=== PATIENT | female | born 1975 | race Caucasian/White ===

== ENCOUNTER 2017-05-20 10:32 | Outpatient (RCR) | payer MEDICAID, OTHER ==
[2017-05-20 11:15] LABS: BASOPHILS % (AUTO) 0 % (0-10); EOSINOPHILS # (AUTO) 0.2 10^3/uL (0.0-0.3); EOSINOPHILS % (AUTO) 3 % (0-10); LYMPHOCYTES # (AUTO) 1.3 X 10^3 (1.0-4.0); LYMPHOCYTES % (AUTO) 17 % (12-44); MEAN CORPUSCULAR HEMOGLOBIN 20 PG (25-34); MEAN CORPUSCULAR HGB CONC 29 G/DL (32-36); MEAN CORPUSCULAR VOLUME 68 FL (80-99); MEAN PLATELET VOLUME 9.5 FL (7.4-10.4); MONOCYTES # (AUTO) 0.6 X 10^3 (0.0-1.0); MONOCYTES % (AUTO) 7 % (0-12); NEUTROPHILS # (AUTO) 5.9 X 10^3 (1.8-7.8); NEUTROPHILS % (AUTO) 73 % (42-75); PLATELET COUNT 362 10^3/uL (130-400); RED BLOOD COUNT 3.51 10^6/uL (4.35-5.85); RED CELL DISTRIBUTION WIDTH 17.2 % (10.0-14.5); WHITE BLOOD COUNT 8.1 10^3/uL (4.3-11.0)
[2017-05-20 11:31] LABS: ALANINE AMINOTRANSFERASE 10 U/L (0-55); ALBUMIN 3.9 GM/DL (3.2-4.5); ANION GAP 10 MMOL/L (5-14); ASPARTATE AMINO TRANSFERASE 8 U/L (5-34); BILIRUBIN,TOTAL 0.3 MG/DL (0.1-1.0); BLOOD UREA NITROGEN 16 MG/DL (7-18); BUN/CREATININE RATIO 20; CALCIUM 9.2 MG/DL (8.5-10.1); CARBON DIOXIDE 23 MMOL/L (21-32); CHLORIDE 103 MMOL/L (98-107); CREATININE SERUM 0.81 MG/DL (0.60-1.30); GFR ESTIMATED > 60; GLUCOSE 205 MG/DL (70-105); POTASSIUM 4.1 MMOL/L (3.6-5.0); SODIUM 136 MMOL/L (135-145); TOTAL PROTEIN 7.1 GM/DL (6.4-8.2)
== END 2017-05-23 | disposition home or self-care (01) ==
LOC: ONC 10:32
PROVIDERS: ATTEND Internal Medicine Hematology & Oncology
DX: R59.0 Localized enlarged lymph nodes; E66.01 Morbid (severe) obesity due to excess calories; K86.9 Disease of pancreas, unspecified; E11.9 Type 2 diabetes mellitus without complications; D50.0 Iron deficiency anemia secondary to blood loss (chronic); Z68.42 Body mass index [BMI] 45.0-49.9, adult; C53.9 Malignant neoplasm of cervix uteri, unspecified; F17.210 Nicotine dependence, cigarettes, uncomplicated; F32.9 Major depressive disorder, single episode, unspecified; Z79.899 Other long term (current) drug therapy
CPT/HCPCS: 36415; 80053; 82728; 83540; 85025; 86304; 99214

== ENCOUNTER 2017-05-28 05:44 | Outpatient (CLI) | payer MEDICAID ==
[~2017-05-28] VITALS: Ht 170.2 cm; Wt 128.4 kg
[2017-05-28] MEDS ORDERED: HYDR-3812 PO (14:55)
[2017-05-28] MEDS ORDERED: MEDR10TA PO (14:55)
== END 2017-05-28 15:04 ==
LOC: PREOP 05:44
PROVIDERS: ATTEND Surgery
DX: Z01.818 Encounter for other preprocedural examination (principal); C53.9 Malignant neoplasm of cervix uteri, unspecified

== ENCOUNTER 2017-05-29 06:56 | Day surgery (SDC) | payer MEDICAID ==
[~2017-05-29] VITALS: Ht 170.2 cm; Wt 128.4 kg
[~2017-05-29 06:56] MED LIST: HYDR-3812 PO; MEDR10TA PO
[2017-05-29] MEDS ORDERED: 0.9% SODIUM CHLORIDE PF INJ 20 ML VIAL ONE (06:58)
[2017-05-29] MEDS ORDERED: HEParin (CENTRAL IV FLUSH) 500 UNIT/5 ML SYR ONE (06:58)
[2017-05-29] MEDS ORDERED: LIDOCAINE 1% INJ 20 ML (XYLOCAINE) VIAL ONE (06:58)
[2017-05-29] MEDS ORDERED: BUPIVACAINE 0.5% 30 ML (SENSORCAINE) VIAL ONE (06:58)
--- OUTSIDE RECORDS SUMMARY | 2017-05-29 07:00 | XMS REPORT | CCD ---
Author Author BONNIE DUKE Unknown Address [address] [facility] [address] [place] [address] Care Team Providers Care Outer Diameter Grinder Tool Name Role Phone МАРИЯ JOSEPH, LOLA Escobar Attphyroro МАРИЯ JOSEPH, LOLA Domínguez Allergies Allergy Code Allergy Type Reaction Status No Known Drug Allergies 0 Drug allergy Active Active Medications Unknown or Not Available. Problems Unknown or Not Available. Procedures Procedure Code Procedure Type Date SHOULDER MINIMUM [id number] 06/13/2016 BEDSIDE GLUCOSE [id number] SNOMED CT 06/13/2016 Results BEDSIDE GLUCOSE - Collect Date/Time: 06/13/2016 01:41 Test Name Code Test Result Test Units Test Ref Range GLUCOSE POCT 181 MG/DL L=70 H=100 Function Status Unknown or Not Available. History of Immunizations Unknown or Not Available. Plan of Treatment Unknown or Not Available. Social History Smoking Status Code Start Date End Date Current every day smoker [id number] Vital Signs Unknown or Not Available. Function Status Unknown or Not Available. Goals Unknown or Not Available. ASSESSMENTS Unknown or Not Available. Health Concerns Section Unknown or Not Available.
[2017-05-29] MEDS ORDERED: LACTATED RINGERS 1,000 ML IV PRN (07:07)
[2017-05-29] MEDS ORDERED: proPOfol 200 MG/20 ML (DIPRIVAN) VIAL IV ONE ×2 (07:15→08:33)
[2017-05-29] MEDS ORDERED: PROPOFOL INJECTION 50 ML IV ONE ×2 (07:16→08:25)
[2017-05-29] MEDS ORDERED: fentaNYL INJECTION 100 MCG/2 ML AMP ONE (07:16)
[2017-05-29] MEDS ORDERED: MIDAZOLAM 2 MG/2 ML (VERSED) VIAL ONE (07:16)
--- NOTE | 2017-05-29 07:26 | Progress Note-Pre Operative ---
Pre-Operative Progress Note H&P Reviewed The H&P was reviewed, patient examined and no changes noted. Date Seen by Provider: May 29, 2017 Time Seen by Provider: 07: Date H&P Reviewed: May 29, 2017 Time H&P Reviewed: 07: Pre-Operative Diagnosis: cervical cancer, right lower ext skin lesion BABITA SPIVEY DO May 29, 2017 07:26
[2017-05-29 07:30] VITALS: BP 145/83
[2017-05-29] MEDS ORDERED: CATHETER FLUSH 10 ML SYR IV PRN (07:30)
[2017-05-29] MEDS ORDERED: ceFAZolin 2 GM/NS 50 ML IV ONE (07:30)
--- NOTE | 2017-05-29 08:53 | Progress Note-Post Operative ---
Post-Operative Progess Note Surgeon (s)/Manager Control (s) Surgeon BABITA SPIVEY DO Manager Control: na Pre-Operative Diagnosis cervical cancer, right lower ext skin lesion Post-Operative Diagnosis same Procedure & Operative Findings Date of Procedure 05/29/17 Procedure Performed/Findings port placement u/s guidance right IJ, excision skin lesion right lower extremity 2.5x1.5 cm Anesthesia Type mac c local Estimated Blood Loss Estimated blood loss (mL): min Specimens/Packing Specimens Removed skin lesion short suture superior long suture BABITA Mendes DO May 29, 2017 08:53
--- NOTE | 2017-05-29 08:59 | Discharge Inst-Simple/Standard ---
Discharge Inst-Standard Patient Instructions/Follow Up Plan of Care/Instructions/FU: 12-14 days for suture removal-Greg Activity as Tolerated: No Discharge Diet: Regular Diet Other Inst to Patient Follow up Appt: Make appointment for 12-14 days Instructions: No lifting greater than 10 pounds. No strenuous activity. May shower in 24 hours, no tub bath or soaking. Use incentive spirometer at home as directed. No Smoking Skin/Wound Care: May remove bandages in 48 hours. You have special glue over incisions it will fall off on its own. Symptoms to Report: Appetite Changes, Extremity Discoloration, Numbness/Tingling, Swelling Increased , Bleeding Excessive, Eyesight Changes, Pain Increased, Urine Color Change, Constipation(Persistent), Fever over 101 degree F, Pain/Pressure in chest, Urinating Difficulty, Cough Up/Vomit Blood, Heart Beat Irreg/Pounding, Pain/ Pressure in jaw, Vaginal Bleeding Increase, Cramps in feet or legs, Lightheadedness, Pain/Pressure in shoulder, Diarrhea(Persistent), Memory Changes Suddenly, Questions/Concerns, Weight gain consecutive days, Dizziness/ Fainting, Nausea/Vomiting, Shortness of Breath, Weight gain over 2 pounds If questions or concerns contact your physician Or seek help at emergency department. BABITA SPIVEY DO May 29, 2017 08:58
[2017-05-29 09:30] VITALS: BP 127/72
--- NOTE | 2017-05-29 09:35 | Diagnostic Imaging Report ---
CLINICAL INDICATION: Postop Groshong placement. EXAM: Portable chest x-ray upright view. COMPARISONS: None. FINDINGS: There is a Groshong central line seen overlying right chest with tip in the mid superior vena cava. Lungs/pleura: There is a curvilinear amorphous area of increased density overlying the periphery of the left midlung field which appears to extend outside the confines of the chest wall that may be external to patient and representing artifact. Otherwise, lungs are clear. There is no pneumothorax. There is no pleural effusion. Mediastinum: Unremarkable. Pulmonary vasculature: Unremarkable. Heart: Unremarkable. Bones/extrathoracic soft tissue: Unremarkable. IMPRESSION: 1: There is a Groshong central line catheter overlying right chest with tip in the mid superior vena cava. There is no pneumothorax. 2: There is no radiographic evidence of acute cardiopulmonary process. 3: There is a curvilinear amorphous area of increased density overlying the periphery of the left mid lung field, which appears to extend outside the confines of the chest wall that may be external to patient and represented artifact. Dictated by: Dictated on workstation # [id number]
[2017-05-29 10:00] VITALS: BP 143/91
[2017-05-29 10:04] VITALS: BP 143/91
--- NOTE | 2017-05-29 21:16 | Diagnostic Imaging Report ---
Intraoperative view of the chest. INDICATION: Port placement. Fluoroscopic time provided is 48 seconds. IMPRESSION: Provided image demonstrates a right IJ port is seen with tip at the SVC level. Dictated by: Dictated on workstation # [id number]
--- NOTE | 2017-05-30 09:22 | OPERATIVE REPORT ---
DATE OF SERVICE: 05/29/2017 PREOPERATIVE DIAGNOSIS: Cervical cancer and skin lesion, right lower extremity. POSTOPERATIVE DIAGNOSIS: Cervical cancer and skin lesion, right lower extremity. PROCEDURE: Port placement under ultrasound guidance right internal jugular vein and excision of skin lesion 2.5 x 1.5 cm. SURGEON: Babita Garza DO ANESTHESIA: Per CUSTOMS COMPLIANCE ANALYST, MAC with local. ESTIMATED BLOOD LOSS: Minimal. COMPLICATIONS: None. INDICATIONS: The patient is a 42-year-old female with recent diagnosis of cervical cancer. She is undergoing chemotherapy treatment and needed port placement. She also has a skin lesion to the right lower extremity, she would like to have removed. She understands risks and benefits of above procedures and wished to proceed with procedure. Consent was signed in the chart. DESCRIPTION OF PROCEDURE: The patient was taken to the operating suite. She was prepped and draped in sterile fashion. Surgical pause was performed. Using ultrasound, the right internal jugular vein was located. A micro access needle was used to access the right internal jugular vein, nonpulsatile, dark blood was withdrawn. The syringe was removed. The micro access wire was inserted and the needle was removed. Fluoroscopy assured proper placement. An 11 blade scalpel was used to make a stab incision at the insertion site of the wire. A micro access dilator sheath was then advanced over the guidewire and the dilator and wire were removed. The regular guidewire was then placed through the sheath and the sheath was then removed. Fluoroscopy assured proper placement. The wire was then secured. Local anesthetic was used to infiltrate the neck and the right chest in order for pocket creation and tunneling. A #15 blade scalpel was used to make a skin incision and dissect down through the subcutaneous tissues and the pocket was then created on the right chest with both sharp and blunt dissection. The dilator sheath was then advanced over the guidewire under fluoroscopy. The wire and dilator were removed. The Groshong catheter was then inserted through the sheath and the sheath was removed. The Groshong wire was then removed. The catheter was then tunneled to the right chest and Fluoroscopy was used to cut to length attached to the port and then placed within the pocket that was created. The port was then accessed without difficulty. It was then flushed with saline and then heparin. The subcutaneous tissues were then reapproximated using 3-0 Vicryl. The skin was then closed using 4-0 Vicryl in a running subcuticular fashion. Dermabond was placed over the incisions. The right lower extremity was then prepped and draped in sterile fashion. Local anesthetic was infiltrated into the area. The #15 blade scalpel was used to make an incision around the lesion measuring 2.5 x 1.5 cm. The skin and subcutaneous tissue was removed. The specimen was labeled with a short suture superior and long suture inferiorly. The skin was then closed using 3-0 nylon in a running fashion. The area was then washed and dried, sterile bandage was applied. The patient tolerated the procedure well without any complications. She was taken to the recovery room in stable condition. Chest x-ray pending. Job ID: [id number] DocumentID: [id number] Dictated Date: 05/29/2017 13:08:55 Mud Mixer Helper Date: 05/29/2017 23:03:57 Dictated By: BABITA GARZA DO
== END 2017-05-29 10:04 | disposition home or self-care (01) ==
LOC: SDC 06:56
PROVIDERS: ATTEND Surgery
DX: C53.9 Malignant neoplasm of cervix uteri, unspecified (principal); D23.71 Other benign neoplasm of skin of right lower limb, including hip; E11.9 Type 2 diabetes mellitus without complications; E66.01 Morbid (severe) obesity due to excess calories; Z68.41 Body mass index [BMI] 40.0-44.9, adult; D64.9 Anemia, unspecified; F17.210 Nicotine dependence, cigarettes, uncomplicated; G47.33 Obstructive sleep apnea (adult) (pediatric); Z79.899 Other long term (current) drug therapy
CPT/HCPCS: 71010; 84703; 87081

== ENCOUNTER → 2017-06-09 | Outpatient (CLI) | payer MEDICAID | LOC: RAD 07:59 | PROVIDERS: ATTEND Internal Medicine Hematology & Oncology | DX: C53.9 Malignant neoplasm of cervix uteri, unspecified (principal) ==

== ENCOUNTER → 2017-06-16 | Outpatient (CLI) | payer MEDICAID ==
--- NOTE | 2017-06-16 13:28 | Diagnostic Imaging Report ---
EXAMINATION: PET-CT TECHNIQUE: Serum glucose level at the time of the study is: 173 mg/dL. 12.8 mCi of FDG was administered intravenously followed by obtaining PET images with corresponding noncontrast CT scan images. The CT scan was performed for anatomic correlation and attenuation correction and was not performed according to the diagnostic protocol of the areas covered. The scan was performed from the head to mid thighs. INDICATION: Cervical cancer. FINDINGS: There is symmetric FDG uptake in the brain. No suspicious hypermetabolic mass is seen in the neck. No significant hypermetabolism is seen in the chest. In the abdomen and pelvis, there is a physiologic activity related to excretion of the tracer in the renal collecting system. There is a ureteric stent on the left side. There is a hypermetabolic left periaortic enlarged lymph node measuring 3.5 x 3.4 cm. Maximum SUV is 8. There is also a 5.6 x 2.8 cm hypermetabolic enlarged lymph node centered between the left internal and external iliac arteries. Maximum SUV is 6.5. Prominent increased FDG uptake is seen centered in the area of the cervix which shows nonspecific fullness on the localizer CT scan and the area of increased FDG uptake is estimated to extend about 7.7 x 7.7 cm in maximum axial dimension. Maximum SUV is 11. There is hypermetabolism in the anterior abdominal wall inferiorly along a ventral hernia that has a wide neck. The activity is along the inferior aspect of the bowel loop within the hernia and is uncertain if it relates to the bowel wall or adjacent soft tissue mass. A single omental metastasis in this location is unusual and this is favored to relate to incidental physiologic bowel activity. The maximum SUV at this location is 6.7. IMPRESSION: 1. Hypermetabolic mass centered in the cervix with evidence of neoplastic spread into the left internal iliac and left para-aortic hypermetabolic lymph nodes are seen. 2. Indeterminate mild increased FDG uptake along the inferior aspect of a ventral hernia near a bowel loop. This is favored to be physiologic activity or related to inflammation rather than a single omental metastasis. Followup studies recommended. Dictated by: Dictated on workstation # [id number]
== END ==
LOC: RAD 08:05
PROVIDERS: ATTEND Internal Medicine Hematology & Oncology
DX: C53.9 Malignant neoplasm of cervix uteri, unspecified (principal); C77.5 Secondary and unspecified malignant neoplasm of intrapelvic lymph nodes; K43.9 Ventral hernia without obstruction or gangrene

== ENCOUNTER → 2017-08-31 | Outpatient (RCR) | payer MEDICAID ==
[2017-06-02 14:09] LABS: BASOPHILS % (AUTO) 1 % (0-10); EOSINOPHILS # (AUTO) 0.2 10^3/uL (0.0-0.3); EOSINOPHILS % (AUTO) 3 % (0-10); HEMATOCRIT 26 % (35-52); HEMOGLOBIN 7.4 G/DL (11.5-16.0); LYMPHOCYTES # (AUTO) 1.5 X 10^3 (1.0-4.0); LYMPHOCYTES % (AUTO) 19 % (12-44); MEAN CORPUSCULAR HEMOGLOBIN 19 PG (25-34); MEAN CORPUSCULAR HGB CONC 28 G/DL (32-36); MEAN CORPUSCULAR VOLUME 67 FL (80-99); MEAN PLATELET VOLUME 9.3 FL (7.4-10.4); MONOCYTES # (AUTO) 0.6 X 10^3 (0.0-1.0); MONOCYTES % (AUTO) 8 % (0-12); NEUTROPHILS # (AUTO) 5.4 X 10^3 (1.8-7.8); NEUTROPHILS % (AUTO) 70 % (42-75); PLATELET COUNT 316 10^3/uL (130-400); RED BLOOD COUNT 3.87 10^6/uL (4.35-5.85); RED CELL DISTRIBUTION WIDTH 17.3 % (10.0-14.5); WHITE BLOOD COUNT 7.8 10^3/uL (4.3-11.0)
[2017-06-18 15:40] LABS: BASOPHILS % (AUTO) 0 % (0-10); EOSINOPHILS # (AUTO) 0.2 10^3/uL (0.0-0.3); EOSINOPHILS % (AUTO) 3 % (0-10); HEMATOCRIT 27 % (35-52); LYMPHOCYTES # (AUTO) 1.5 X 10^3 (1.0-4.0); LYMPHOCYTES % (AUTO) 20 % (12-44); MEAN CORPUSCULAR HEMOGLOBIN 20 PG (25-34); MEAN CORPUSCULAR HGB CONC 29 G/DL (32-36); MEAN CORPUSCULAR VOLUME 67 FL (80-99); MEAN PLATELET VOLUME 9.3 FL (7.4-10.4); MONOCYTES # (AUTO) 0.6 X 10^3 (0.0-1.0); MONOCYTES % (AUTO) 7 % (0-12); NEUTROPHILS # (AUTO) 5.4 X 10^3 (1.8-7.8); NEUTROPHILS % (AUTO) 70 % (42-75); PLATELET COUNT 316 10^3/uL (130-400); RED BLOOD COUNT 4.07 10^6/uL (4.35-5.85); RED CELL DISTRIBUTION WIDTH 18.4 % (10.0-14.5); WHITE BLOOD COUNT 7.7 10^3/uL (4.3-11.0)
[2017-06-29 09:10] LABS: BASOPHILS % (AUTO) 0 % (0-10); EOSINOPHILS # (AUTO) 0.1 10^3/uL (0.0-0.3); EOSINOPHILS % (AUTO) 2 % (0-10); HEMATOCRIT 26 % (35-52); HEMOGLOBIN 7.6 G/DL (11.5-16.0); LYMPHOCYTES # (AUTO) 0.5 X 10^3 (1.0-4.0); LYMPHOCYTES % (AUTO) 7 % (12-44); MEAN CORPUSCULAR HEMOGLOBIN 20 PG (25-34); MEAN CORPUSCULAR HGB CONC 29 G/DL (32-36); MEAN CORPUSCULAR VOLUME 68 FL (80-99); MEAN PLATELET VOLUME 9.3 FL (7.4-10.4); MONOCYTES # (AUTO) 0.4 X 10^3 (0.0-1.0); MONOCYTES % (AUTO) 7 % (0-12); NEUTROPHILS # (AUTO) 5.2 X 10^3 (1.8-7.8); NEUTROPHILS % (AUTO) 84 % (42-75); PLATELET COUNT 276 10^3/uL (130-400); RED BLOOD COUNT 3.85 10^6/uL (4.35-5.85); RED CELL DISTRIBUTION WIDTH 20.4 % (10.0-14.5); WHITE BLOOD COUNT 6.2 10^3/uL (4.3-11.0)
[2017-06-29 09:38] LABS: BUN/CREATININE RATIO 24; CALCIUM 9.4 MG/DL (8.5-10.1); CARBON DIOXIDE 22 MMOL/L (21-32); CHLORIDE 103 MMOL/L (98-107); CREATININE SERUM 0.74 MG/DL (0.60-1.30); GFR ESTIMATED > 60; GLUCOSE 227 MG/DL (70-105); MAGNESIUM 1.6 MG/DL (1.8-2.4); POTASSIUM 4.1 MMOL/L (3.6-5.0); SODIUM 135 MMOL/L (135-145)
[2017-07-06 12:16] LABS: BASOPHILS % (AUTO) 0 % (0-10); EOSINOPHILS # (AUTO) 0.1 10^3/uL (0.0-0.3); EOSINOPHILS % (AUTO) 2 % (0-10); HEMATOCRIT 25 % (35-52); HEMOGLOBIN 7.3 G/DL (11.5-16.0); LYMPHOCYTES # (AUTO) 0.3 X 10^3 (1.0-4.0); LYMPHOCYTES % (AUTO) 8 % (12-44); MEAN CORPUSCULAR HEMOGLOBIN 21 PG (25-34); MEAN CORPUSCULAR HGB CONC 30 G/DL (32-36); MEAN CORPUSCULAR VOLUME 71 FL (80-99); MEAN PLATELET VOLUME 8.8 FL (7.4-10.4); MONOCYTES # (AUTO) 0.4 X 10^3 (0.0-1.0); MONOCYTES % (AUTO) 9 % (0-12); NEUTROPHILS # (AUTO) 3.1 X 10^3 (1.8-7.8); NEUTROPHILS % (AUTO) 81 % (42-75); PLATELET COUNT 169 10^3/uL (130-400); RED BLOOD COUNT 3.49 10^6/uL (4.35-5.85); RED CELL DISTRIBUTION WIDTH 23.8 % (10.0-14.5); WHITE BLOOD COUNT 3.9 10^3/uL (4.3-11.0)
[2017-07-06 12:36] LABS: ALANINE AMINOTRANSFERASE 14 U/L (0-55); ALBUMIN 3.3 GM/DL (3.2-4.5); ALKALINE PHOSPHATASE 55 U/L (40-136); BILIRUBIN,TOTAL 0.2 MG/DL (0.1-1.0); BUN/CREATININE RATIO 19; CALCIUM 8.8 MG/DL (8.5-10.1); CARBON DIOXIDE 23 MMOL/L (21-32); CHLORIDE 101 MMOL/L (98-107); CREATININE SERUM 0.77 MG/DL (0.60-1.30); GFR ESTIMATED > 60; GLUCOSE 278 MG/DL (70-105); POTASSIUM 3.9 MMOL/L (3.6-5.0); SODIUM 132 MMOL/L (135-145)
[2017-07-13 08:59] LABS: BASOPHILS % (AUTO) 0 % (0-10); EOSINOPHILS # (AUTO) 0.1 10^3/uL (0.0-0.3); EOSINOPHILS % (AUTO) 2 % (0-10); HEMATOCRIT 27 % (35-52); HEMOGLOBIN 8.4 G/DL (11.5-16.0); LYMPHOCYTES # (AUTO) 0.2 X 10^3 (1.0-4.0); LYMPHOCYTES % (AUTO) 6 % (12-44); MEAN CORPUSCULAR HEMOGLOBIN 22 PG (25-34); MEAN CORPUSCULAR HGB CONC 31 G/DL (32-36); MEAN CORPUSCULAR VOLUME 72 FL (80-99); MEAN PLATELET VOLUME 8.8 FL (7.4-10.4); MONOCYTES # (AUTO) 0.3 X 10^3 (0.0-1.0); MONOCYTES % (AUTO) 8 % (0-12); NEUTROPHILS # (AUTO) 3.5 X 10^3 (1.8-7.8); NEUTROPHILS % (AUTO) 84 % (42-75); PLATELET COUNT 134 10^3/uL (130-400); RED BLOOD COUNT 3.79 10^6/uL (4.35-5.85); RED CELL DISTRIBUTION WIDTH 26.8 % (10.0-14.5); WHITE BLOOD COUNT 4.2 10^3/uL (4.3-11.0)
[2017-07-13 09:18] LABS: ALANINE AMINOTRANSFERASE 14 U/L (0-55); ALBUMIN 3.5 GM/DL (3.2-4.5); ALKALINE PHOSPHATASE 62 U/L (40-136); BILIRUBIN,TOTAL 0.4 MG/DL (0.1-1.0); BUN/CREATININE RATIO 22; CALCIUM 9.5 MG/DL (8.5-10.1); CARBON DIOXIDE 22 MMOL/L (21-32); CHLORIDE 102 MMOL/L (98-107); CREATININE SERUM 0.73 MG/DL (0.60-1.30); GFR ESTIMATED > 60; GLUCOSE 228 MG/DL (70-105); POTASSIUM 4.3 MMOL/L (3.6-5.0); SODIUM 136 MMOL/L (135-145); TOTAL PROTEIN 6.7 GM/DL (6.4-8.2)
[2017-07-20 08:58] LABS: BASOPHILS % (AUTO) 1 % (0-10); EOSINOPHILS % (AUTO) 1 % (0-10); HEMATOCRIT 27 % (35-52); HEMOGLOBIN 8.5 G/DL (11.5-16.0); LYMPHOCYTES # (AUTO) 0.2 X 10^3 (1.0-4.0); LYMPHOCYTES % (AUTO) 6 % (12-44); MEAN CORPUSCULAR HEMOGLOBIN 23 PG (25-34); MEAN CORPUSCULAR HGB CONC 32 G/DL (32-36); MEAN CORPUSCULAR VOLUME 73 FL (80-99); MEAN PLATELET VOLUME 8.7 FL (7.4-10.4); MONOCYTES # (AUTO) 0.2 X 10^3 (0.0-1.0); MONOCYTES % (AUTO) 7 % (0-12); NEUTROPHILS # (AUTO) 2.9 X 10^3 (1.8-7.8); NEUTROPHILS % (AUTO) 86 % (42-75); PLATELET COUNT 103 10^3/uL (130-400); RED CELL DISTRIBUTION WIDTH 28.6 % (10.0-14.5); WHITE BLOOD COUNT 3.4 10^3/uL (4.3-11.0)
[2017-07-20 09:16] LABS: ALANINE AMINOTRANSFERASE 16 U/L (0-55); ALBUMIN 3.5 GM/DL (3.2-4.5); ALKALINE PHOSPHATASE 65 U/L (40-136); BILIRUBIN,TOTAL 0.4 MG/DL (0.1-1.0); BUN/CREATININE RATIO 25; CALCIUM 9.4 MG/DL (8.5-10.1); CARBON DIOXIDE 24 MMOL/L (21-32); CHLORIDE 101 MMOL/L (98-107); CREATININE SERUM 0.69 MG/DL (0.60-1.30); GFR ESTIMATED > 60; GLUCOSE 307 MG/DL (70-105); MAGNESIUM 1.4 MG/DL (1.8-2.4); POTASSIUM 4.4 MMOL/L (3.6-5.0); SODIUM 134 MMOL/L (135-145); TOTAL PROTEIN 6.8 GM/DL (6.4-8.2)
[2017-07-27 13:21] LABS: BASOPHILS % (AUTO) 0 % (0-10); EOSINOPHILS % (AUTO) 1 % (0-10); HEMATOCRIT 26 % (35-52); HEMOGLOBIN 8.4 G/DL (11.5-16.0); LYMPHOCYTES # (AUTO) 0.2 X 10^3 (1.0-4.0); LYMPHOCYTES % (AUTO) 10 % (12-44); MEAN CORPUSCULAR HEMOGLOBIN 24 PG (25-34); MEAN CORPUSCULAR HGB CONC 33 G/DL (32-36); MEAN CORPUSCULAR VOLUME 74 FL (80-99); MEAN PLATELET VOLUME 8.7 FL (7.4-10.4); MONOCYTES # (AUTO) 0.2 X 10^3 (0.0-1.0); MONOCYTES % (AUTO) 8 % (0-12); NEUTROPHILS # (AUTO) 1.9 X 10^3 (1.8-7.8); NEUTROPHILS % (AUTO) 82 % (42-75); PLATELET COUNT 103 10^3/uL (130-400); RED BLOOD COUNT 3.47 10^6/uL (4.35-5.85); WHITE BLOOD COUNT 2.4 10^3/uL (4.3-11.0)
[2017-07-27 13:39] LABS: ALANINE AMINOTRANSFERASE 19 U/L (0-55); ALBUMIN 3.4 GM/DL (3.2-4.5); ALKALINE PHOSPHATASE 70 U/L (40-136); BILIRUBIN,TOTAL 0.5 MG/DL (0.1-1.0); BUN/CREATININE RATIO 18; CALCIUM 8.6 MG/DL (8.5-10.1); CARBON DIOXIDE 24 MMOL/L (21-32); CHLORIDE 100 MMOL/L (98-107); CREATININE SERUM 0.78 MG/DL (0.60-1.30); GFR ESTIMATED > 60; GLUCOSE 354 MG/DL (70-105); POTASSIUM 3.9 MMOL/L (3.6-5.0); SODIUM 131 MMOL/L (135-145); TOTAL PROTEIN 6.4 GM/DL (6.4-8.2)
[2017-08-03 08:53] LABS: BASOPHILS % (AUTO) 0 % (0-10); EOSINOPHILS % (AUTO) 1 % (0-10); HEMATOCRIT 30 % (35-52); HEMOGLOBIN 9.9 G/DL (11.5-16.0); LYMPHOCYTES # (AUTO) 0.2 X 10^3 (1.0-4.0); LYMPHOCYTES % (AUTO) 8 % (12-44); MEAN CORPUSCULAR HEMOGLOBIN 26 PG (25-34); MEAN CORPUSCULAR HGB CONC 33 G/DL (32-36); MEAN CORPUSCULAR VOLUME 77 FL (80-99); MEAN PLATELET VOLUME 9.1 FL (7.4-10.4); MONOCYTES # (AUTO) 0.2 X 10^3 (0.0-1.0); MONOCYTES % (AUTO) 10 % (0-12); NEUTROPHILS # (AUTO) 1.9 X 10^3 (1.8-7.8); NEUTROPHILS % (AUTO) 81 % (42-75); PLATELET COUNT 65 10^3/uL (130-400); RED BLOOD COUNT 3.84 10^6/uL (4.35-5.85); WHITE BLOOD COUNT 2.3 10^3/uL (4.3-11.0)
[2017-08-25 09:58] LABS: BASOPHILS % (AUTO) 0 % (0-10); EOSINOPHILS # (AUTO) 0.1 10^3/uL (0.0-0.3); EOSINOPHILS % (AUTO) 1 % (0-10); HEMATOCRIT 31 % (35-52); HEMOGLOBIN 10.8 G/DL (11.5-16.0); LYMPHOCYTES # (AUTO) 0.6 X 10^3 (1.0-4.0); LYMPHOCYTES % (AUTO) 15 % (12-44); MEAN CORPUSCULAR HEMOGLOBIN 29 PG (25-34); MEAN CORPUSCULAR HGB CONC 34 G/DL (32-36); MEAN CORPUSCULAR VOLUME 85 FL (80-99); MEAN PLATELET VOLUME 8.6 FL (7.4-10.4); MONOCYTES # (AUTO) 0.5 X 10^3 (0.0-1.0); MONOCYTES % (AUTO) 13 % (0-12); NEUTROPHILS # (AUTO) 2.7 X 10^3 (1.8-7.8); NEUTROPHILS % (AUTO) 71 % (42-75); PLATELET COUNT 157 10^3/uL (130-400); RED BLOOD COUNT 3.71 10^6/uL (4.35-5.85); RED CELL DISTRIBUTION WIDTH 26.2 % (10.0-14.5); WHITE BLOOD COUNT 3.9 10^3/uL (4.3-11.0)
[~2017-08-31] VITALS: Ht 167.6 cm; Wt 120.2 kg
[~2017-08-31] MED LIST changes: +ACETAMINOPHEN 500 MG TAB (TYLENOL) CANCER CTR ONE; +ACHD5005 PO; +ALTEPLASE 2 MG (CATHFLO) CANCER CENTER IV ONE; +CISPLATIN IV SCH; +FAMOTIDINE 20MG/2ML IV (CANCER CTR) IV SCH; +FERRIC CARBOXYMALTOSE (CANCER) 750 MG in NS (IVPB) CANCER CENTER 250 ML IV SCH; +FOSAPREPITANT DIMEGLUMINE 150 MG in NS (IVPB) CANCER CENTER ONLY 150 ML IV SCH; -HYDR-3812 PO; +MANNITOL IV SCH; +NS (IVPB) CANCER CENTER 250 ML ONE; +NS IV 1000 ML (CANCER CTR) IV SCH; +NS IV 500 ML (CANCER CENTER) 500 ML ONE; +PALONOSETRON 0.25 MG, DEXAMETHASONE 10 MG/NS 50 ML IVPB IV PRN; +[UNRECOGNIZED DRUG - OTHER] IV SCH; +diphenhydrAMINE 25 MG TAB (BENADRYL) CANCER CENTER PO SCH
== END | disposition home or self-care (01) ==
LOC: ONC 06-02 12:57
PROVIDERS: ATTEND Internal Medicine Hematology & Oncology
DX: Z51.11 Encounter for antineoplastic chemotherapy (principal); Z51.0 Encounter for antineoplastic radiation therapy; C53.9 Malignant neoplasm of cervix uteri, unspecified; K86.9 Disease of pancreas, unspecified; E11.9 Type 2 diabetes mellitus without complications; F17.210 Nicotine dependence, cigarettes, uncomplicated; F32.9 Major depressive disorder, single episode, unspecified; E66.01 Morbid (severe) obesity due to excess calories; Z68.42 Body mass index [BMI] 45.0-49.9, adult; Z79.899 Other long term (current) drug therapy; D50.0 Iron deficiency anemia secondary to blood loss (chronic); R59.0 Localized enlarged lymph nodes
CPT/HCPCS: 36415; 36430; 36591; 36593; 77300; 77301; 77307; 77334; 77336; 77338; 77385; 77386; 77417; 77470; 80048; 80053; 82728; 83540; 83735; 85025; 85027; 86304; 86850; 86900; 86901; 86920; 96367; 96374; 96375; 96413; 96415; 99213; 99215

== ENCOUNTER → 2017-09-30 | Outpatient (CLI) | payer MEDICAID ==
[~2017-09-30] MED LIST changes: -ACETAMINOPHEN 500 MG TAB (TYLENOL) CANCER CTR ONE; -ALTEPLASE 2 MG (CATHFLO) CANCER CENTER IV ONE; +BARIUM SUSPENSION 2.1% (VANILLA SILQ) 450 ML PO ONE; +CATHETER FLUSH 10 ML SYR IV PRN; -CISPLATIN IV SCH; -FAMOTIDINE 20MG/2ML IV (CANCER CTR) IV SCH; -FERRIC CARBOXYMALTOSE (CANCER) 750 MG in NS (IVPB) CANCER CENTER 250 ML IV SCH; -FOSAPREPITANT DIMEGLUMINE 150 MG in NS (IVPB) CANCER CENTER ONLY 150 ML IV SCH; +IOHEXOL 350 MG/ML 100 ML (OMNIPAQUE 350) VIAL IV ONE; -MANNITOL IV SCH; -NS (IVPB) CANCER CENTER 250 ML ONE; +NS 250 ML (IVPB) BAG IV ONE; -NS IV 1000 ML (CANCER CTR) IV SCH; -NS IV 500 ML (CANCER CENTER) 500 ML ONE; -PALONOSETRON 0.25 MG, DEXAMETHASONE 10 MG/NS 50 ML IVPB IV PRN; -[UNRECOGNIZED DRUG - OTHER] IV SCH; -diphenhydrAMINE 25 MG TAB (BENADRYL) CANCER CENTER PO SCH
--- NOTE | 2017-09-30 12:04 | Diagnostic Imaging Report ---
PROCEDURE: CT chest, abdomen, and pelvis with contrast. TECHNIQUE: Multiple contiguous axial images were obtained through the chest, abdomen, and pelvis after the administration of intravenous contrast. INDICATION: Carcinoma of the cervix. There are no previous CT examinations available for comparison. FINDINGS: The PET/CT exam of 06/16/2017 did note a large hypermetabolic mass centered about the cervix with evidence of neoplastic spread into the left internal iliac and left periaortic nodes. There is also dilatation of the left ureter and left renal pelvis. This was most likely due to partial obstruction of the distal left ureter secondary to the mass involving the cervix. In the interval since the prior exam, the mass involving the cervix has decreased in size considerably. The interface between the mass and the uterus is somewhat difficult to establish and consequently the precise decrease in size of the mass is not certain. However, it does appear to be significant. There is only a small amount of residual density still present in the cervix. There are small metallic densities in this area which have been inserted since the prior exam. The left iliac chain adenopathy noted previously has also diminished. On the prior exam, the nodes in the left iliac region measured 2.4 x 4.7 cm. On this study, those nodes now measure 1.0 x 2.2 cm. The 3.1 x 3.9 cm low-density mass in the left adnexa seen previously is not well visualized on this study. The 2.8 x 2.9 cm periaortic lymph node on the left seen on the prior exam has also decreased in size and now measures 1.0 x 1.2 cm. Furthermore, there has been insertion of a stent into the left ureter. The stent appears to be in good position and the left ureter and left renal pelvis are less distended than noted on the prior exam. The liver, spleen, pancreas, adrenals, kidneys, gallbladder, aorta and inferior vena cava show no sign of an acute abnormality. The stomach is partially filled with oral contrast and consequently difficult to assess. The images through the thorax show that the heart size is within normal limits. There are no coronary artery calcifications identified. The aorta is not abnormally dilated and there is no sign of dissection. The pulmonary arteries were not well opacified and consequently the evaluation for pulmonary embolus is limited. There is no obvious defect within the pulmonary arteries to indicate a pulmonary embolus. There is no mediastinal or hilar adenopathy. The thyroid gland is generally unremarkable. The lungs are clear. There is no sign of failure, pneumonia or pleural effusion to indicate an acute abnormality. There is no parenchymal lung mass visualized either. There is no obvious breast mass. The bone windows show no sign of a fracture or of a destructive lesion. There is symmetrical fairly severe sclerosis of both sacroiliac joints. IMPRESSION: 1. The cervical mass seen on the previous exam has decreased in size significantly. The neoplastic adenopathy noted on the prior exam has also diminished. 2. There has been interval insertion of a ureteral stent on the left. The stent appears to be in good position and the left collecting system does appear decompressed when compared to the prior exam. 3. There is no acute abnormality of the chest, abdomen or pelvis identified. There is no other sign of neoplastic disease either. Dictated by: Dictated on workstation # [id number]
== END ==
LOC: RAD 09:41
PROVIDERS: ATTEND Internal Medicine Hematology & Oncology
DX: C53.9 Malignant neoplasm of cervix uteri, unspecified (principal); Z96.0 Presence of urogenital implants
CPT/HCPCS: 71260; 74177

== ENCOUNTER 2017-11-06 09:59 | Outpatient (RCR) | payer MEDICAID ==
[2017-09-21 13:36] LABS: BASOPHILS % (AUTO) 0 % (0-10); EOSINOPHILS # (AUTO) 0.3 10^3/uL (0.0-0.3); EOSINOPHILS % (AUTO) 6 % (0-10); HEMATOCRIT 34 % (35-52); HEMOGLOBIN 11.9 G/DL (11.5-16.0); LYMPHOCYTES # (AUTO) 0.5 X 10^3 (1.0-4.0); LYMPHOCYTES % (AUTO) 11 % (12-44); MEAN CORPUSCULAR HEMOGLOBIN 32 PG (25-34); MEAN CORPUSCULAR HGB CONC 36 G/DL (32-36); MEAN CORPUSCULAR VOLUME 89 FL (80-99); MEAN PLATELET VOLUME 9.4 FL (7.4-10.4); MONOCYTES # (AUTO) 0.4 X 10^3 (0.0-1.0); MONOCYTES % (AUTO) 9 % (0-12); NEUTROPHILS # (AUTO) 3.6 X 10^3 (1.8-7.8); NEUTROPHILS % (AUTO) 75 % (42-75); PLATELET COUNT 150 10^3/uL (130-400); RED BLOOD COUNT 3.78 10^6/uL (4.35-5.85); RED CELL DISTRIBUTION WIDTH 16.3 % (10.0-14.5); WHITE BLOOD COUNT 4.8 10^3/uL (4.3-11.0)
[2017-09-21 14:07] LABS: ALANINE AMINOTRANSFERASE 17 U/L (0-55); ALBUMIN 3.5 GM/DL (3.2-4.5); ALKALINE PHOSPHATASE 70 U/L (40-136); BILIRUBIN,TOTAL 0.3 MG/DL (0.1-1.0); BUN/CREATININE RATIO 19; CALCIUM 9.1 MG/DL (8.5-10.1); CARBON DIOXIDE 26 MMOL/L (21-32); CHLORIDE 104 MMOL/L (98-107); CREATININE SERUM 0.75 MG/DL (0.60-1.30); GFR ESTIMATED > 60; GLUCOSE 215 MG/DL (70-105); POTASSIUM 4.6 MMOL/L (3.6-5.0); SODIUM 139 MMOL/L (135-145); TOTAL PROTEIN 6.4 GM/DL (6.4-8.2)
[2017-10-05 14:54] LABS: BASOPHILS % (AUTO) 0 % (0-10); EOSINOPHILS # (AUTO) 0.5 10^3/uL (0.0-0.3); EOSINOPHILS % (AUTO) 8 % (0-10); HEMATOCRIT 35 % (35-52); HEMOGLOBIN 12.3 G/DL (11.5-16.0); LYMPHOCYTES # (AUTO) 0.6 X 10^3 (1.0-4.0); LYMPHOCYTES % (AUTO) 11 % (12-44); MEAN CORPUSCULAR HEMOGLOBIN 31 PG (25-34); MEAN CORPUSCULAR HGB CONC 36 G/DL (32-36); MEAN CORPUSCULAR VOLUME 87 FL (80-99); MEAN PLATELET VOLUME 8.8 FL (7.4-10.4); MONOCYTES # (AUTO) 0.5 X 10^3 (0.0-1.0); MONOCYTES % (AUTO) 8 % (0-12); NEUTROPHILS # (AUTO) 4.1 X 10^3 (1.8-7.8); NEUTROPHILS % (AUTO) 73 % (42-75); PLATELET COUNT 173 10^3/uL (130-400); RED BLOOD COUNT 3.97 10^6/uL (4.35-5.85); WHITE BLOOD COUNT 5.7 10^3/uL (4.3-11.0)
[2017-10-05 15:09] LABS: BUN/CREATININE RATIO 24; CALCIUM 9.3 MG/DL (8.5-10.1); CARBON DIOXIDE 25 MMOL/L (21-32); CHLORIDE 100 MMOL/L (98-107); CREATININE SERUM 0.75 MG/DL (0.60-1.30); GFR ESTIMATED > 60; GLUCOSE 265 MG/DL (70-105); MAGNESIUM 1.5 MG/DL (1.8-2.4); POTASSIUM 4.3 MMOL/L (3.6-5.0); SODIUM 134 MMOL/L (135-145)
[~2017-11-06 09:59] MED LIST changes: -BARIUM SUSPENSION 2.1% (VANILLA SILQ) 450 ML PO ONE; -CATHETER FLUSH 10 ML SYR IV PRN; -IOHEXOL 350 MG/ML 100 ML (OMNIPAQUE 350) VIAL IV ONE; -NS 250 ML (IVPB) BAG IV ONE
== END 2017-11-30 | disposition home or self-care (01) ==
LOC: ONC 09:59
PROVIDERS: ATTEND Internal Medicine Hematology & Oncology
DX: Z51.0 Encounter for antineoplastic radiation therapy (principal); C53.9 Malignant neoplasm of cervix uteri, unspecified; C77.5 Secondary and unspecified malignant neoplasm of intrapelvic lymph nodes; K43.9 Ventral hernia without obstruction or gangrene; D50.0 Iron deficiency anemia secondary to blood loss (chronic); R59.0 Localized enlarged lymph nodes; K86.9 Disease of pancreas, unspecified; E11.9 Type 2 diabetes mellitus without complications; F17.210 Nicotine dependence, cigarettes, uncomplicated; F32.9 Major depressive disorder, single episode, unspecified; E66.01 Morbid (severe) obesity due to excess calories; Z68.42 Body mass index [BMI] 45.0-49.9, adult; Z79.899 Other long term (current) drug therapy; Z45.2 Encounter for adjustment and management of vascular access device
CPT/HCPCS: 36415; 36591; 77336; 80048; 80053; 82728; 83540; 83735; 85025; 86304; 96523; 99213; 99214

== ENCOUNTER → 2017-12-25 | Outpatient (CLI) | payer MEDICAID ==
[~2017-12-25] MED LIST changes: +CATHETER FLUSH 10 ML SYR IV PRN; +ESCI20TA PO; +INSU100I10 SQ; +INSU100I14 SQ; +IOHEXOL 350 MG/ML 100 ML (OMNIPAQUE 350) VIAL IV ONE; +NS 250 ML (IVPB) BAG IV ONE; +ONDA8TAB6 PO; +OXYC10TA55 PO; +RECEIVED CONTRAST (Hold Metformin) IV SCH
--- NOTE | 2017-12-25 12:45 | Diagnostic Imaging Report ---
PROCEDURE: CT chest, abdomen, and pelvis with contrast. TECHNIQUE: Multiple contiguous axial images were obtained through the chest, abdomen, and pelvis after the administration of intravenous contrast. INDICATION: Cervical carcinoma, follow-up. COMPARISON: Comparison is made with prior CT from 09/30/2017. FINDINGS: CT chest: Right chest wall port has the tip within the superior vena cava. No axillary lymphadenopathy is seen. A small node located between the left common carotid artery and left subclavian demonstrates short axis measurement of 8 mm compared with 9 mm on prior exam. No other enlarged mediastinal or hilar lymph nodes are seen. No pericardial or pleural fluid is detected. No pulmonary infiltrates, nodules, or masses are seen. IMPRESSION: Stable CT of the chest when compared with prior exam from 09/30/2017. No new or enlarging thoracic lymphadenopathy or evidence of pulmonary metastatic disease is identified. CT abdomen and pelvis: The liver is enlarged at approximately 24 cm, similar to prior exam. No discrete liver mass is identified. The gallbladder is unremarkable. The pancreas is unremarkable. Spleen is enlarged at approximately 17 cm, stable. No adrenal mass is identified. The right kidney is unremarkable. Patient's left-sided double-J nephroureteral stent appears to be malpositioned. This is now more inferiorly displaced and located in the mid left ureter and extends into the bladder. There appears to be some looping of the stent in the mid ureter. There appears to be periureteral inflammatory stranding, similar to prior exam. A left periaortic lymph node has increased in size and is located just cephalad to the aortic bifurcation. This measures 2.5 x 1.9 cm compared with 1.2 x 1.0 cm. The previously noted enlarged left iliac node appears smaller at 1.3 x 1.0 cm compared with 2.2 x 1.0 cm. Right iliac region is unremarkable. No inguinal lymphadenopathy is seen. Appearance of the uterus and cervix appears stable. There is no ascites. There has been development of abnormal soft tissue identified in the inferior abdomen anteriorly just deep to the abdominal wall. Lobulated soft tissue mass-like density is seen, in aggregate measuring approximately 14.3 cm transverse x 5.8 cm AP. This may have been visible on prior exam but was barely visible and has significantly increased. This may represent peritoneal implants. IMPRESSION: 1. Enlarging left para-aortic lymph node when compared with prior study from 09/30/2017. In addition, there has been development of abnormal soft tissue mass-like density in the anterior midline in right lower abdomen, suspicious for peritoneal implants. The left iliac node is decreased in size. 2. Malpositioned left ureteral double-J stent, which is now displaced inferiorly and coiled in the mid ureter. The distal portion of the stent remains within the urinary bladder. 3. Stable hepatosplenomegaly. Dictated by: Dictated on workstation # [id number]
== END ==
LOC: RAD 11:11
PROVIDERS: ATTEND Internal Medicine Hematology & Oncology
DX: C53.9 Malignant neoplasm of cervix uteri, unspecified (principal); T83.122A Displacement of indwelling ureteral stent, initial encounter; R59.0 Localized enlarged lymph nodes; R19.03 Right lower quadrant abdominal swelling, mass and lump; R16.2 Hepatomegaly with splenomegaly, not elsewhere classified; Z96.0 Presence of urogenital implants
CPT/HCPCS: 71260; 74177

== ENCOUNTER 2017-12-31 05:38 | Outpatient (CLI) | payer MEDICAID ==
[~2017-12-31] VITALS: Ht 170.2 cm; Wt 128.4 kg
[~2017-12-31 05:38] MED LIST changes: -CATHETER FLUSH 10 ML SYR IV PRN; -ESCI20TA PO; -INSU100I10 SQ; -INSU100I14 SQ; -IOHEXOL 350 MG/ML 100 ML (OMNIPAQUE 350) VIAL IV ONE; -NS 250 ML (IVPB) BAG IV ONE; -ONDA8TAB6 PO; -OXYC10TA55 PO; -RECEIVED CONTRAST (Hold Metformin) IV SCH
[2017-12-31] MEDS ORDERED: INSU100I10 SQ (12:50)
[2017-12-31] MEDS ORDERED: ONDA8TAB6 PO (12:50)
[2017-12-31] MEDS ORDERED: OXYC10TA55 PO (12:50)
[2017-12-31] MEDS ORDERED: ESCI20TA PO (12:50)
[2017-12-31] MEDS ORDERED: INSU100I14 SQ (12:50)
== END 2017-12-31 13:04 ==
LOC: PREOP 05:38
PROVIDERS: ATTEND Surgery
DX: Z01.818 Encounter for other preprocedural examination (principal)

== ENCOUNTER 2018-01-04 09:37 | Day surgery (SDC) | payer MEDICAID ==
[~2018-01-04] VITALS: Ht 170.2 cm; Wt 128.4 kg
[~2018-01-04 09:37] MED LIST changes: +ESCI20TA PO; +INSU100I10 SQ; +INSU100I14 SQ; +ONDA8TAB6 PO; +OXYC10TA55 PO
--- OUTSIDE RECORDS SUMMARY | 2018-01-04 09:41 | XMS REPORT | CCD ---
Author Author AMADA RODRIGUEZ Organization Unknown Address [address] [place] [address] Care Team Providers Care Tube Coverer Name Role Phone YOANA MAN MD Attphys YOANA MAN MD Prisurg Allergies Allergy Code Allergy Type Reaction Status No Known Drug Allergies 0 Drug allergy Active Active Medications Unknown or Not Available. Problems Unknown or Not Available. Procedures Procedure Code Procedure Type Date CBC W/ AUTO DIFF (RFLX MAN DIFF IF IND) [id number] SNOMED CT 12/01/2016 TEST URINE [id number] SNOMED CT 12/01/2016 ^CBC W/AUTO DIFF [id number] SNOMED CT 12/01/2016 Results CBC W/ AUTO DIFF (RFLX MAN DIFF IF IND) - Collect Date/Time: 12/01/2016 21:47 Test Name Code Test Result Test Units Test Ref Range WBC 72376-1 7.7 TH/CMM L=4.5 H=10.8 RBC 789-8 4.27 ML/CMM L=4.20 H=5.40 HGB 718-7 11.1 G/DL L=12.0 H=16.0 HCT 4544-3 34.4 % L=37.0 H=47.0 MCV 81 FL L=81 H=99 MCH 26.0 PG L=27.0 H=33.0 MCHC 32.3 G/DL L=31.0 H=36.0 RDW SD 41 FL L=36 H=50 RDW CV 13.9 % L=0.0 H=14.8 MPV 9.4 FL L=9.3 H=12.5 PLT 777-3 228 TH/CMM L=130 H=440 NRBC# 0.00 TH/CMM L=0.00 H=0.00 NRBC% 0.0 /100WBC L=0.0 H=2.0 %NEUT 70.7 % %LYMP 19.9 % %MONO 5.9 % %EOS 2.5 % %BASO 0.4 % #NEUT 5.47 TH/CMM L=2.10 H=8.20 #LYMP 1.54 TH/CMM L=0.90 H=5.20 #MONO 0.46 TH/CMM L=0.16 H=1.00 #EOS 0.19 TH/CMM L=0.00 H=0.80 #BASO 0.03 TH/CMM L=0.00 H=0.20 MANUAL DIFF NOT IND N/A PT/PTT - Collect Date/Time: 12/01/2016 21:47 Test Name Code Test Result Test Units Test Ref Range PROTIME 5964-2 10.8 SEC L=9.9 H=11.9 INR 99500-0 1.0 PTT 3173-2 25.8 SEC L=22.2 H=37.2 TEST URINE - Collect Date/Time: 12/01/2016 22:13 Test Name Code Test Result Test Units Test Ref Range TEST UR 2106-3 NEGATIVE N/A Function Status Unknown or Not Available. History of Immunizations Unknown or Not Available. Plan of Treatment Unknown or Not Available. Social History Smoking Status Code Start Date End Date Current every day smoker [id number] Vital Signs Unknown or Not Available. Function Status Unknown or Not Available. Goals Unknown or Not Available. ASSESSMENTS Unknown or Not Available. Health Concerns Section Unknown or Not Available.
--- OUTSIDE RECORDS SUMMARY | 2018-01-04 09:43 | XMS REPORT | Continuity of Care Document ---
Author Author [facility] Address Unknown Phone Unavailable Allergies Active Description Code Type Severity Reaction Onset Reported/Identified Relationship to Patient Clinical Status Yes No Known Drug Allergies [id number] N/A N/A Yes No Known Drug Allergies [id number] Drug Allergy Unknown N/A 05/28/2017 Medications There is no data. 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, UNSP 05/21/2017 JAMIL DIAZ MD, Ot D50.0 IRON DEFICIENCY ANEMIA SECONDARY TO BLOO 05/21/2017 JAMIL DIAZ MD, Ot E11.9 TYPE 2 DIABETES MELLITUS WITHOUT COMPLIC 05/21/2017 JAMIL DIAZ MD, Ot E66.01 MORBID (SEVERE) OBESITY DUE TO EXCESS CA 05/21/2017 JAMIL DIAZ MD, Ot F17.210 NICOTINE DEPENDENCE, CIGARETTES, UNCOMPL 05/21/2017 JAMIL DIAZ MD, Ot F32.9 MAJOR DEPRESSIVE DISORDER, SINGLE EPISOD 05/21/2017 JAMIL DIAZ MD, Ot K86.9 DISEASE OF PANCREAS, UNSPECIFIED 05/21/2017 JAMIL DIAZ MD, Ot R59.0 LOCALIZED ENLARGED LYMPH NODES 05/21/2017 JAMIL DIAZ MD, Ot Z68.42 BODY MASS INDEX (BMI) 45.0-49.9, ADULT 05/21/2017 JAMIL DIAZ MD, Ot Z79.899 OTHER USP (CURRENT) DRUG THERAPY 05/23/2017 JAMIL DIAZ MD, Ot 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, UNSP 05/23/2017 JAMIL DIAZ MD, Ot D50.0 IRON DEFICIENCY ANEMIA SECONDARY TO BLOO 05/23/2017 JAMIL DIAZ MD, Ot E11.9 TYPE 2 DIABETES MELLITUS WITHOUT COMPLIC 05/23/2017 JAMIL DIAZ MD, Ot E66.01 MORBID (SEVERE) OBESITY DUE TO EXCESS CA 05/23/2017 JAMIL DIAZ MD Ot F17.210 NICOTINE DEPENDENCE, CIGARETTES, UNCOMPL 05/23/2017 JAMIL DIAZ MD, Ot F32.9 MAJOR DEPRESSIVE DISORDER, SINGLE EPISOD 05/23/2017 JAMIL DIAZ MD, Ot K86.9 DISEASE OF PANCREAS, UNSPECIFIED 05/23/2017 JAMIL DIAZ MD Ot R59.0 LOCALIZED ENLARGED LYMPH NODES 05/23/2017 JAMIL DIAZ MD, Ot Z68.42 BODY MASS INDEX (BMI) 45.0-49.9, ADULT 05/23/2017 JAMIL DIAZ MD, Ot Z79.899 OTHER USP (CURRENT) DRUG THERAPY 05/28/2017 BABITA SPIVEY DO Ot 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, UNSP 05/28/2017 BABITA SPIVEY DO Ot Z01.818 ENCOUNTER FOR OTHER PREPROCEDURAL EXAMIN 05/28/2017 JAMIL DIAZ MD, Ot 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, UNSP 05/28/2017 JAMIL DIAZ MD, Ot D50.0 IRON DEFICIENCY ANEMIA SECONDARY TO BLOO 05/28/2017 JAMIL DIAZ MD Ot E11.9 TYPE 2 DIABETES MELLITUS WITHOUT COMPLIC 05/28/2017 JAMIL DIAZ MD, Ot E66.01 MORBID (SEVERE) OBESITY DUE TO EXCESS CA 05/28/2017 JAMIL DIAZ MD, Ot F17.210 NICOTINE DEPENDENCE, CIGARETTES, UNCOMPL 05/28/2017 JAMIL DIAZ MD, Ot F32.9 MAJOR DEPRESSIVE DISORDER, SINGLE EPISOD 05/28/2017 JAMIL DIAZ MD, Ot K86.9 DISEASE OF PANCREAS, UNSPECIFIED 05/28/2017 JAMIL DIAZ MD, Ot R59.0 LOCALIZED ENLARGED LYMPH NODES 05/28/2017 JAMIL DIAZ MD, Ot Z68.42 BODY MASS INDEX (BMI) 45.0-49.9, ADULT 05/28/2017 JAMIL DIAZ MD, Ot Z79.899 OTHER DRILLING FIELD SPECIALIST (CURRENT) DRUG THERAPY 05/29/2017 BABITA SPIVEY DO Ot 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, UNSP 05/29/2017 BABITA SPIVEY DO Ot Z01.818 ENCOUNTER FOR OTHER PREPROCEDURAL EXAMIN 05/29/2017 SPIVEY DO, BABITA D Ot 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, UNSP 05/29/2017 SPIVEY DO, BABITA D Ot D23.71 OTH BENIGN NEOPLASM SKIN/ RIGHT LOWER LI 05/29/2017 SPIVEY DO, BABITA D Ot D64.9 ANEMIA, UNSPECIFIED 05/29/2017 SPIVEY DO, BABITA D Ot E11.9 TYPE 2 DIABETES MELLITUS WITHOUT COMPLIC 05/29/2017 SPIVEY DO, BABITA D Ot E66.01 MORBID (SEVERE) OBESITY DUE TO EXCESS CA 05/29/2017 SPIVEY DO, BABITA D Ot F17.210 NICOTINE DEPENDENCE, CIGARETTES, UNCOMPL 05/29/2017 SPIVEY DO, BABITA D Ot G47.33 OBSTRUCTIVE SLEEP APNEA (ADULT) (PEDIATR 05/29/2017 SPIVEY DO, BABITA D Ot Z68.41 BODY MASS INDEX (BMI) 40.0-44.9, ADULT 05/29/2017 SPIVEY DO, BABITA D Ot Z79.899 OTHER DRILLING FIELD SPECIALIST (CURRENT) DRUG THERAPY 06/02/2017 SPIVEY DO, BABITA D Ot 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, UNSP 06/02/2017 SPIVEY DO, BABITA D Ot D23.71 OTH BENIGN NEOPLASM SKIN/ RIGHT LOWER LI 06/02/2017 SPIVEY DO, BABITA D Ot D64.9 ANEMIA, UNSPECIFIED 06/02/2017 SPIVEY DO, BABITA D Ot E11.9 TYPE 2 DIABETES MELLITUS WITHOUT COMPLIC 06/02/2017 SPIVEY DO, BABITA D Ot E66.01 MORBID (SEVERE) OBESITY DUE TO EXCESS CA 06/02/2017 SPIVEY DO, BABITA D Ot F17.210 NICOTINE DEPENDENCE, CIGARETTES, UNCOMPL 06/02/2017 SPIVEY DO, BABITA D Ot G47.33 OBSTRUCTIVE SLEEP APNEA (ADULT) (PEDIATR 06/02/2017 SPIVEY DO, BABITA D Ot Z68.41 BODY MASS INDEX (BMI) 40.0-44.9, ADULT 06/02/2017 SPIVEY DO, BABITA D Ot Z79.899 OTHER DRILLING FIELD SPECIALIST (CURRENT) DRUG THERAPY 06/03/2017 JAMIL DIAZ MD Ot 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, UNSP 06/03/2017 XUJAMIL Paz MD, Ot D50.0 IRON DEFICIENCY ANEMIA SECONDARY TO BLOO 06/03/2017 JAMIL DIAZ MD Ot E11.9 TYPE 2 DIABETES MELLITUS WITHOUT COMPLIC 06/03/2017 JAMIL DIAZ MD, Ot E66.01 MORBID (SEVERE) OBESITY DUE TO EXCESS CA 06/03/2017 JAMIL DIAZ MD, Ot F17.210 NICOTINE DEPENDENCE, CIGARETTES, UNCOMPL 06/03/2017 JAMIL DIAZ MD, Ot F32.9 MAJOR DEPRESSIVE DISORDER, SINGLE EPISOD 06/03/2017 JAMIL DIAZ MD, Ot K86.9 DISEASE OF PANCREAS, UNSPECIFIED 06/03/2017 JAMIL DIAZ MD, Ot R59.0 LOCALIZED ENLARGED LYMPH NODES 06/03/2017 JAMIL DIAZ MD, Ot Z68.42 BODY MASS INDEX (BMI) 45.0-49.9, ADULT 06/03/2017 JAMIL DIAZ MD, Ot Z79.899 OTHER DRILLING FIELD SPECIALIST (CURRENT) DRUG THERAPY 06/04/2017 JAMIL DIAZ MD, Ot 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, UNSP 06/04/2017 JAMIL DIAZ MD, Ot D50.0 IRON DEFICIENCY ANEMIA SECONDARY TO BLOO 06/04/2017 JAMIL DIAZ MD Ot E11.9 TYPE 2 DIABETES MELLITUS WITHOUT COMPLIC 06/04/2017 JAMIL DIAZ MD, Ot E66.01 MORBID (SEVERE) OBESITY DUE TO EXCESS CA 06/04/2017 JAMIL DIAZ MD, Ot F17.210 NICOTINE DEPENDENCE, CIGARETTES, UNCOMPL 06/04/2017 JAMIL DIAZ MD, Ot F32.9 MAJOR DEPRESSIVE DISORDER, SINGLE EPISOD 06/04/2017 JAMIL DIAZ MD, Ot K86.9 DISEASE OF PANCREAS, UNSPECIFIED 06/04/2017 JAMIL DIAZ MD, Ot R59.0 LOCALIZED ENLARGED LYMPH NODES 06/04/2017 JAMIL DIAZ MD, Ot Z68.42 BODY MASS INDEX (BMI) 45.0-49.9, ADULT 06/04/2017 JAMIL DIAZ MD, Ot Z79.899 OTHER USP (CURRENT) DRUG THERAPY 06/22/2017 JAMIL DIAZ MD, Ot 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, UNSP 06/22/2017 JAMIL DIAZ MD, Ot C77.5 SECONDARY AND UNSP MALIGNANT NEOPLASM OF 06/22/2017 JAMIL DIAZ MD, Ot K43.9 VENTRAL HERNIA WITHOUT OBSTRUCTION OR GA 06/22/2017 JAMIL DIAZ MD, Ot 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, UNSP 06/22/2017 JAMIL DIAZ MD, Ot D50.0 IRON DEFICIENCY ANEMIA SECONDARY TO BLOO 06/22/2017 JAMIL DIAZ MD, Ot E11.9 TYPE 2 DIABETES MELLITUS WITHOUT COMPLIC 06/22/2017 JAMIL DIAZ MD, Ot E66.01 MORBID (SEVERE) OBESITY DUE TO EXCESS CA 06/22/2017 JAMIL DIAZ MD, Ot F17.210 NICOTINE DEPENDENCE, CIGARETTES, UNCOMPL 06/22/2017 JAMIL DIAZ MD, Ot F32.9 MAJOR DEPRESSIVE DISORDER, SINGLE EPISOD 06/22/2017 JAMIL DIAZ MD, Ot K86.9 DISEASE OF PANCREAS, UNSPECIFIED 06/22/2017 JAMIL DIAZ MD, Ot R59.0 LOCALIZED ENLARGED LYMPH NODES 06/22/2017 JAMIL DIAZ MD, Ot Z68.42 BODY MASS INDEX (BMI) 45.0-49.9, ADULT 06/22/2017 JAMIL DIAZ MD, Ot Z79.899 OTHER USP (CURRENT) DRUG THERAPY 06/22/2017 JAMIL DIAZ MD, Ot 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, UNSP 06/22/2017 JAMIL DIAZ MD, Ot D50.0 IRON DEFICIENCY ANEMIA SECONDARY TO BLOO 06/22/2017 JAMIL DIAZ MD, Ot E11.9 TYPE 2 DIABETES MELLITUS WITHOUT COMPLIC 06/22/2017 JAMIL DIAZ MD, Ot E66.01 MORBID (SEVERE) OBESITY DUE TO EXCESS CA 06/22/2017 JAMIL DIAZ MD, Ot F17.210 NICOTINE DEPENDENCE, CIGARETTES, UNCOMPL 06/22/2017 JAMIL DIAZ MD, Ot F32.9 MAJOR DEPRESSIVE DISORDER, SINGLE EPISOD 06/22/2017 JAMIL DIAZ MD, Ot K86.9 DISEASE OF PANCREAS, UNSPECIFIED 06/22/2017 JAMIL DIAZ MD, Ot R59.0 LOCALIZED ENLARGED LYMPH NODES 06/22/2017 JAMIL DIAZ MD, Ot Z68.42 BODY MASS INDEX (BMI) 45.0-49.9, ADULT 06/22/2017 JAMIL DIAZ MD, Ot Z79.899 OTHER DRILLING FIELD SPECIALIST (CURRENT) DRUG THERAPY 06/22/2017 JAMIL DIAZ MD, Ot 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, UNSP 06/22/2017 JAMIL DIAZ MD, Ot D50.0 IRON DEFICIENCY ANEMIA SECONDARY TO BLOO 06/22/2017 JAMIL DIAZ MD, Ot E11.9 TYPE 2 DIABETES MELLITUS WITHOUT COMPLIC 06/22/2017 JAMIL DIAZ MD, Ot E66.01 MORBID (SEVERE) OBESITY DUE TO EXCESS CA 06/22/2017 JAMIL DIAZ MD, Ot F17.210 NICOTINE DEPENDENCE, CIGARETTES, UNCOMPL 06/22/2017 JAMIL DIAZ MD, Ot F32.9 MAJOR DEPRESSIVE DISORDER, SINGLE EPISOD 06/22/2017 JAMIL DIAZ MD, Ot K86.9 DISEASE OF PANCREAS, UNSPECIFIED 06/22/2017 JAMIL DIAZ MD, Ot R59.0 LOCALIZED ENLARGED LYMPH NODES 06/22/2017 JAMIL DIAZ MD, Ot Z68.42 BODY MASS INDEX (BMI) 45.0-49.9, ADULT 06/22/2017 JAMIL DIAZ MD, Ot Z79.899 OTHER USP (CURRENT) DRUG THERAPY 07/07/2017 JAMIL DIAZ MD, Ot 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, UNSP 07/07/2017 JAMIL DIAZ MD, Ot D50.0 IRON DEFICIENCY ANEMIA SECONDARY TO BLOO 07/07/2017 JAMIL DIAZ MD, Ot E11.9 TYPE 2 DIABETES MELLITUS WITHOUT COMPLIC 07/07/2017 JAMIL DIAZ MD, Ot E66.01 MORBID (SEVERE) OBESITY DUE TO EXCESS CA 07/07/2017 JAMIL DIAZ MD, Ot F17.210 NICOTINE DEPENDENCE, CIGARETTES, UNCOMPL 07/07/2017 JAMIL DIAZ MD, Ot F32.9 MAJOR DEPRESSIVE DISORDER, SINGLE EPISOD 07/07/2017 JAMIL DIAZ MD, Ot K86.9 DISEASE OF PANCREAS, UNSPECIFIED 07/07/2017 JAMIL DIAZ MD Ot R59.0 LOCALIZED ENLARGED LYMPH NODES 07/07/2017 JAMIL DIAZ MD, Ot Z68.42 BODY MASS INDEX (BMI) 45.0-49.9, ADULT 07/07/2017 JAMIL DIAZ MD, Ot Z79.899 OTHER USP (CURRENT) DRUG THERAPY 07/14/2017 JAMIL DIAZ MD, Ot 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, UNSP 07/14/2017 JAMIL DIAZ MD, Ot C77.5 SECONDARY AND UNSP MALIGNANT NEOPLASM OF 07/14/2017 JAMIL DIAZ MD, Ot K43.9 VENTRAL HERNIA WITHOUT OBSTRUCTION OR GA 07/27/2017 JAMIL DIAZ MD, Ot 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, UNSP 07/27/2017 JAMIL DIAZ MD, Ot D50.0 IRON DEFICIENCY ANEMIA SECONDARY TO BLOO 07/27/2017 JAMIL DIAZ MD, Ot E11.9 TYPE 2 DIABETES MELLITUS WITHOUT COMPLIC 07/27/2017 JAMIL DIAZ MD, Ot E66.01 MORBID (SEVERE) OBESITY DUE TO EXCESS CA 07/27/2017 JAMIL DIAZ MD, Ot F17.210 NICOTINE DEPENDENCE, CIGARETTES, UNCOMPL 07/27/2017 JAMIL DIAZ MD, Ot F32.9 MAJOR DEPRESSIVE DISORDER, SINGLE EPISOD 07/27/2017 JAMIL DIAZ MD, Ot K86.9 DISEASE OF PANCREAS, UNSPECIFIED 07/27/2017 JAMIL DIAZ MD, Ot R59.0 LOCALIZED ENLARGED LYMPH NODES 07/27/2017 JAMIL DIAZ MD, Ot Z68.42 BODY MASS INDEX (BMI) 45.0-49.9, ADULT 07/27/2017 JAMIL DIAZ MD, Ot Z79.899 OTHER USP (CURRENT) DRUG THERAPY 07/27/2017 JAMIL DIAZ MD, Ot 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, UNSP 07/27/2017 JAMIL DIAZ MD, Ot D50.0 IRON DEFICIENCY ANEMIA SECONDARY TO BLOO 07/27/2017 JAMIL DIAZ MD, Ot E11.9 TYPE 2 DIABETES MELLITUS WITHOUT COMPLIC 07/27/2017 JAMIL DIAZ MD, Ot E66.01 MORBID (SEVERE) OBESITY DUE TO EXCESS CA 07/27/2017 JAMIL DIAZ MD, Ot F17.210 NICOTINE DEPENDENCE, CIGARETTES, UNCOMPL 07/27/2017 JAMIL DIAZ MD, Ot F32.9 MAJOR DEPRESSIVE DISORDER, SINGLE EPISOD 07/27/2017 JAMIL DIAZ MD, Ot K86.9 DISEASE OF PANCREAS, UNSPECIFIED 07/27/2017 JAMIL DIAZ MD, Ot R59.0 LOCALIZED ENLARGED LYMPH NODES 07/27/2017 JAMIL DIAZ MD, Ot Z68.42 BODY MASS INDEX (BMI) 45.0-49.9, ADULT 07/27/2017 JAMIL DIAZ MD, Ot Z79.899 OTHER DRILLING FIELD SPECIALIST (CURRENT) DRUG THERAPY 08/31/2017 JAMIL DIAZ MD, Ot 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, UNSP 08/31/2017 JAMIL DIAZ MD, Ot D50.0 IRON DEFICIENCY ANEMIA SECONDARY TO BLOO 08/31/2017 JAMIL DIAZ MD, Ot E11.9 TYPE 2 DIABETES MELLITUS WITHOUT COMPLIC 08/31/2017 JAMIL DIAZ MD, Ot E66.01 MORBID (SEVERE) OBESITY DUE TO EXCESS CA 08/31/2017 JAMIL DIAZ MD, Ot F17.210 NICOTINE DEPENDENCE, CIGARETTES, UNCOMPL 08/31/2017 JAMIL DIAZ MD, Ot F32.9 MAJOR DEPRESSIVE DISORDER, SINGLE EPISOD 08/31/2017 JAMIL DIAZ MD, Ot K86.9 DISEASE OF PANCREAS, UNSPECIFIED 08/31/2017 JAMIL DIAZ MD, Ot R59.0 LOCALIZED ENLARGED LYMPH NODES 08/31/2017 JAMIL DIAZ MD, Ot Z51.0 ENCOUNTER FOR ANTINEOPLASTIC RADIATION T 08/31/2017 JAMIL DIAZ MD, Ot Z51.11 ENCOUNTER FOR ANTINEOPLASTIC CHEMOTHERAP 08/31/2017 JAMIL DIAZ MD, Ot Z68.42 BODY MASS INDEX (BMI) 45.0-49.9, ADULT 08/31/2017 JAMIL DIAZ MD, Ot Z79.899 OTHER USP (CURRENT) DRUG THERAPY 09/02/2017 JAMIL DIAZ MD, Ot 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, UNSP 09/02/2017 JAMIL DIAZ MD, Ot C77.5 SECONDARY AND UNSP MALIGNANT NEOPLASM OF 09/02/2017 JAMIL DIAZ MD, Ot D50.0 IRON DEFICIENCY ANEMIA SECONDARY TO BLOO 09/02/2017 JAMIL DIAZ MD, Ot E11.9 TYPE 2 DIABETES MELLITUS WITHOUT COMPLIC 09/02/2017 JAMIL DIAZ MD, Ot E66.01 MORBID (SEVERE) OBESITY DUE TO EXCESS CA 09/02/2017 JMAIL DIAZ MD, Ot F17.210 NICOTINE DEPENDENCE, CIGARETTES, UNCOMPL 09/02/2017 JAMIL DIAZ MD, Ot F32.9 MAJOR DEPRESSIVE DISORDER, SINGLE EPISOD 09/02/2017 JAMIL DIAZ MD, Ot K43.9 VENTRAL HERNIA WITHOUT OBSTRUCTION OR GA 09/02/2017 JAMIL DIAZ MD, Ot K86.9 DISEASE OF PANCREAS, UNSPECIFIED 09/02/2017 JAMIL DIAZ MD, Ot R59.0 LOCALIZED ENLARGED LYMPH NODES 09/02/2017 JAMIL DIAZ MD, Ot Z51.0 ENCOUNTER FOR ANTINEOPLASTIC RADIATION T 09/02/2017 JAMIL DIAZ MD, Ot Z68.42 BODY MASS INDEX (BMI) 45.0-49.9, ADULT 09/02/2017 JAMIL DIAZ MD, Ot Z79.899 OTHER USP (CURRENT) DRUG THERAPY 09/18/2017 JAMIL DIAZ MD, Ot 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, UNSP 09/18/2017 JAMIL DIAZ MD, Ot D50.0 IRON DEFICIENCY ANEMIA SECONDARY TO BLOO 09/18/2017 JAMIL DIAZ MD, Ot E11.9 TYPE 2 DIABETES MELLITUS WITHOUT COMPLIC 09/18/2017 JAMIL DIAZ MD, Ot E66.01 MORBID (SEVERE) OBESITY DUE TO EXCESS CA 09/18/2017 JAMIL DIAZ MD, Ot F17.210 NICOTINE DEPENDENCE, CIGARETTES, UNCOMPL 09/18/2017 JAMIL DIAZ MD, Ot F32.9 MAJOR DEPRESSIVE DISORDER, SINGLE EPISOD 09/18/2017 JAMIL DIAZ MD, Ot K86.9 DISEASE OF PANCREAS, UNSPECIFIED 09/18/2017 JAMIL DIAZ MD, Ot R59.0 LOCALIZED ENLARGED LYMPH NODES 09/18/2017 JAMIL DIAZ MD, Ot Z51.0 ENCOUNTER FOR ANTINEOPLASTIC RADIATION T 09/18/2017 JAMIL DIAZ MD, Ot Z51.11 ENCOUNTER FOR ANTINEOPLASTIC CHEMOTHERAP 09/18/2017 JAMIL DIAZ MD, Ot Z68.42 BODY MASS INDEX (BMI) 45.0-49.9, ADULT 09/18/2017 JAMIL DIAZ MD, Ot Z79.899 OTHER DRILLING FIELD SPECIALIST (CURRENT) DRUG THERAPY 10/01/2017 JAMIL DIAZ MD, Ot 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, UNSP 10/01/2017 JAMIL DIAZ MD, Ot R59.0 LOCALIZED ENLARGED LYMPH NODES 10/01/2017 JAMIL DIAZ MD, Ot Z96.0 PRESENCE OF UROGENITAL IMPLANTS 10/01/2017 JAMIL DIAZ MD, Ot 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, UNSP 10/01/2017 JAMIL DIAZ MD, Ot Z96.0 PRESENCE OF UROGENITAL IMPLANTS 10/01/2017 JAMIL DIAZ MD, Ot 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, UNSP 10/01/2017 JAMIL DIAZ MD, Ot Z96.0 PRESENCE OF UROGENITAL IMPLANTS 10/07/2017 JAMIL DIAZ MD, Ot 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, UNSP 10/07/2017 JAMIL DIAZ MD, Ot C77.5 SECONDARY AND UNSP MALIGNANT NEOPLASM OF 10/07/2017 JAMIL DIAZ MD, Ot D50.0 IRON DEFICIENCY ANEMIA SECONDARY TO BLOO 10/07/2017 JAMIL DIAZ MD, Ot E11.9 TYPE 2 DIABETES MELLITUS WITHOUT COMPLIC 10/07/2017 JAMIL DIAZ MD, Ot E66.01 MORBID (SEVERE) OBESITY DUE TO EXCESS CA 10/07/2017 JAMIL DIAZ MD, Ot F17.210 NICOTINE DEPENDENCE, CIGARETTES, UNCOMPL 10/07/2017 JAMIL DIAZ MD, Ot F32.9 MAJOR DEPRESSIVE DISORDER, SINGLE EPISOD 10/07/2017 JAMIL DIAZ MD, Ot K43.9 VENTRAL HERNIA WITHOUT OBSTRUCTION OR GA 10/07/2017 JAMIL DIAZ MD, Ot K86.9 DISEASE OF PANCREAS, UNSPECIFIED 10/07/2017 JAMIL DIAZ MD, Ot R59.0 LOCALIZED ENLARGED LYMPH NODES 10/07/2017 JAMIL DIAZ MD, Ot Z51.0 ENCOUNTER FOR ANTINEOPLASTIC RADIATION T 10/07/2017 JAMIL DIAZ MD, Ot Z68.42 BODY MASS INDEX (BMI) 45.0-49.9, ADULT 10/07/2017 JAMIL DIAZ MD, Ot Z79.899 OTHER USP (CURRENT) DRUG THERAPY 10/27/2017 JAMIL DIAZ MD, Ot 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, UNSP 10/27/2017 JAMIL DIAZ MD, Ot Z96.0 PRESENCE OF UROGENITAL IMPLANTS 11/30/2017 JAMIL DIAZ MD, Ot 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, UNSP 11/30/2017 JAMIL DIAZ MD, Ot C77.5 SECONDARY AND UNSP MALIGNANT NEOPLASM OF 11/30/2017 JAMIL DIAZ MD, Ot D50.0 IRON DEFICIENCY ANEMIA SECONDARY TO BLOO 11/30/2017 JAMIL DIAZ MD, Ot E11.9 TYPE 2 DIABETES MELLITUS WITHOUT COMPLIC 11/30/2017 JAMIL DIAZ MD, Ot E66.01 MORBID (SEVERE) OBESITY DUE TO EXCESS CA 11/30/2017 JAMIL DIAZ MD, Ot F17.210 NICOTINE DEPENDENCE, CIGARETTES, UNCOMPL 11/30/2017 JAMIL DIAZ MD, Ot F32.9 MAJOR DEPRESSIVE DISORDER, SINGLE EPISOD 11/30/2017 JAMIL DIAZ MD, Ot K43.9 VENTRAL HERNIA WITHOUT OBSTRUCTION OR GA 11/30/2017 JAMIL DIAZ MD, Ot K86.9 DISEASE OF PANCREAS, UNSPECIFIED 11/30/2017 JAMIL DIAZ MD, Ot R59.0 LOCALIZED ENLARGED LYMPH NODES 11/30/2017 JAMIL DIAZ MD, Ot Z45.2 ENCOUNTER FOR ADJUSTMENT AND MANAGEMENT 11/30/2017 JAMIL DIAZ MD, Ot Z51.0 ENCOUNTER FOR ANTINEOPLASTIC RADIATION T 11/30/2017 JAMIL DIAZ MD, Ot Z68.42 BODY MASS INDEX (BMI) 45.0-49.9, ADULT 11/30/2017 JAMIL DIAZ MD, Ot Z79.899 OTHER USP (CURRENT) DRUG THERAPY 12/01/2017 JAMIL DIAZ MD, Ot 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, UNSP 12/01/2017 JAMIL DIAZ MD, Ot C77.5 SECONDARY AND UNSP MALIGNANT NEOPLASM OF 12/01/2017 JAMIL DIAZ MD, Ot D50.0 IRON DEFICIENCY ANEMIA SECONDARY TO BLOO 12/01/2017 JAMIL DIAZ MD, Ot E11.9 TYPE 2 DIABETES MELLITUS WITHOUT COMPLIC 12/01/2017 JAMIL DIAZ MD, Ot E66.01 MORBID (SEVERE) OBESITY DUE TO EXCESS CA 12/01/2017 JAMIL DIAZ MD, Ot F17.210 NICOTINE DEPENDENCE, CIGARETTES, UNCOMPL 12/01/2017 JAMIL DIAZ MD, Ot F32.9 MAJOR DEPRESSIVE DISORDER, SINGLE EPISOD 12/01/2017 JAMIL DIAZ MD, Ot K43.9 VENTRAL HERNIA WITHOUT OBSTRUCTION OR GA 12/01/2017 AJMIL DIAZ MD, Ot K86.9 DISEASE OF PANCREAS, UNSPECIFIED 12/01/2017 JAMIL DIAZ MD, Ot R59.0 LOCALIZED ENLARGED LYMPH NODES 12/01/2017 JAMIL DIAZ MD, Ot Z45.2 ENCOUNTER FOR ADJUSTMENT AND MANAGEMENT 12/01/2017 JAMIL DIAZ MD, Ot Z51.0 ENCOUNTER FOR ANTINEOPLASTIC RADIATION T 12/01/2017 JAMIL DIAZ MD, Ot Z68.42 BODY MASS INDEX (BMI) 45.0-49.9, ADULT 12/01/2017 JAMIL DIAZ MD, Ot Z79.899 OTHER USP (CURRENT) DRUG THERAPY 12/24/2017 JAMIL DIAZ MD, Ot 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, UNSP 12/24/2017 JAMIL DIAZ MD, Ot Z96.0 PRESENCE OF UROGENITAL IMPLANTS 12/24/2017 JAMIL DIAZ MD, Ot 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, UNSP 12/24/2017 JAMIL DIAZ MD, Ot C77.5 SECONDARY AND UNSP MALIGNANT NEOPLASM OF 12/24/2017 JAMIL DIAZ MD, Ot D50.0 IRON DEFICIENCY ANEMIA SECONDARY TO BLOO 12/24/2017 JAMIL DIAZ MD, Ot E11.9 TYPE 2 DIABETES MELLITUS WITHOUT COMPLIC 12/24/2017 JAMIL DIAZ MD, Ot E66.01 MORBID (SEVERE) OBESITY DUE TO EXCESS CA 12/24/2017 JAMIL DIAZ MD, Ot F17.210 NICOTINE DEPENDENCE, CIGARETTES, UNCOMPL 12/24/2017 JAMIL DIAZ MD, Ot F32.9 MAJOR DEPRESSIVE DISORDER, SINGLE EPISOD 12/24/2017 JAMIL DIAZ MD, Ot K43.9 VENTRAL HERNIA WITHOUT OBSTRUCTION OR GA 12/24/2017 JAMIL DIAZ MD, Ot K86.9 DISEASE OF PANCREAS, UNSPECIFIED 12/24/2017 JAMIL DIAZ MD, Ot R59.0 LOCALIZED ENLARGED LYMPH NODES 12/24/2017 JAMIL DIAZ MD, Ot Z51.0 ENCOUNTER FOR ANTINEOPLASTIC RADIATION T 12/24/2017 JAMIL DIAZ MD, Ot Z68.42 BODY MASS INDEX (BMI) 45.0-49.9, ADULT 12/24/2017 JAMIL DIAZ MD, Ot Z79.899 OTHER USP (CURRENT) DRUG THERAPY 12/28/2017 JAMIL DIAZ MD, Ot 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, UNSP 12/28/2017 JAMIL DIAZ MD, Ot R16.2 HEPATOMEGALY WITH SPLENOMEGALY, NOT ELSE 12/28/2017 JAMIL DIAZ MD, Ot R19.03 RIGHT LOWER QUADRANT ABDOMINAL SWELLING, 12/28/2017 JAMIL DIAZ MD, Ot R59.0 LOCALIZED ENLARGED LYMPH NODES 12/28/2017 JAMIL DIAZ MD, Ot T83.122A DISPLACEMENT OF INDWELLING URETERAL STEN 12/28/2017 JAMIL DIAZ MD, Ot Z96.0 PRESENCE OF UROGENITAL IMPLANTS 12/28/2017 JAMIL DIAZ MD, Ot 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, UNSP 12/28/2017 JAMIL DIAZ MD, Ot R16.2 HEPATOMEGALY WITH SPLENOMEGALY, NOT ELSE 12/28/2017 JAMIL DIAZ MD, Ot R19.03 RIGHT LOWER QUADRANT ABDOMINAL SWELLING, 12/28/2017 JAMIL DIAZ MD, Ot R59.0 LOCALIZED ENLARGED LYMPH NODES 12/28/2017 JAMIL DIAZ MD, Ot T83.122A DISPLACEMENT OF INDWELLING URETERAL STEN 12/28/2017 JAMIL DIAZ MD, Ot Z96.0 PRESENCE OF UROGENITAL IMPLANTS 12/31/2017 JAMIL DIAZ MD, Ot 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 Results Test Result Range Urine beta human chorionic gonadotropin (hCG) measurement - 05/29/17 07:00 Urine beta human chorionic gonadotropin (hCG) measurement NEGATIVE NEGATIVE Methicillin resistant Staphylococcus aureus (MRSA) screening culture - 07:00 Methicillin resistant Staphylococcus aureus (MRSA) screening culture NEG NRG MICROALBUMIN/CREATININE RATIO, URINE - 06/05/17 11:55 CREATININE, RANDOM URINE 174 mg/dL 20-320 MICROALBUMIN 8.1 mg/dL See Note: MICROALBUMIN/CREATININE RATIO, RANDOM URINE 47 mcg/mg creat <30 Encounters ACCT No. Visit Date/Time Discharge Status Pt. Type Provider Facility Loc./Unit Complaint [id number] 12/30/2017 15:44:15 12/30/2017 23:59:59 CLS Outpatient Bharathi Pretty [id number] 12/09/2017 12:53:31 12/09/2017 23:59:59 CLS Outpatient Javier Negro [id number] 11/27/2017 12:58:13 11/27/2017 23:59:59 CLS Outpatient HienColin readscarlett Williamson [id number] 11/21/2017 18:21:30 11/21/2017 23:59:59 CLS Outpatient Bharathi Pretty [id number] 10/30/2017 09:19:32 10/30/2017 23:59:59 CLS Outpatient Jean[place]Pierre, V S [id number] 09/02/2017 08:57:38 09/02/2017 23:59:59 CLS Outpatient [place]Pierre, V S [id number] 08/27/2017 09:35:24 08/27/2017 23:59:59 CLS Outpatient Jean-Pierre, V S [id number] 07/23/2017 15:18:15 07/23/2017 23:59:59 CLS Outpatient Jean-Pierre, V S [id number] 06/30/2017 16:34:06 06/30/2017 23:59:59 CLS Outpatient Javier Negro [id number] 06/23/2017 10:42:06 06/23/2017 23:59:59 CLS Outpatient Jean-Pierre, V S [id number] 06/11/2017 09:11:47 06/11/2017 23:59:59 CLS Outpatient Charu Morejon S [id number] 05/26/2017 14:19:37 05/26/2017 23:59:59 CLS Outpatient Charu Morejon S [id number] 05/07/2017 17:03:18 05/07/2017 23:59:59 CLS Outpatient Chandu Ríos [id number] 05/06/2017 11:42:37 05/06/2017 23:59:59 CLS Outpatient Chandu Ríos [id number] 05/04/2017 15:39:54 05/04/2017 23:59:59 CLS Outpatient Chandu Ríos [id number] 12/30/2017 15:17:08 Document Registration [id number] 11/16/2017 07:55:07 Document Registration [id number] 11/12/2017 23:53:22 Document Registration [id number] 10/30/2017 11:10:35 Document Registration [id number] 08/27/2017 10:30:07 Document Registration [id number] 08/27/2017 09:30:30 Document Registration [id number] 06/24/2017 00:23:29 Document Registration [id number] 05/26/2017 17:17:48 Document Registration [id number] 05/26/2017 14:31:03 Document Registration [id number] 05/13/2017 08:52:09 Document Registration [id number] 04/21/2017 12:15:38 Document Registration [id number] 04/18/2017 20:52:17 Document Registration [id number] 04/18/2017 19:09:32 Document Registration [id number] 12/31/2017 05:38:00 12/31/2017 13:04:00 DIS Outpatient BABITA SPIVEY DO [facility] PREOP CERVICAL CANCER [id number] 12/29/2017 09:04:00 12/29/2017 23:59:59 CLS Outpatient JAMIL DIAZ MD [facility] ONC [id number] 12/25/2017 11:11:00 12/25/2017 23:59:59 CLS Outpatient JAMIL DIAZ MD [facility] RAD C53.9 CANCER OF CERVIX [id number] 11/06/2017 09:59:00 11/30/2017 00:01:00 DIS Outpatient JAMIL DIAZ MD [facility] ONC [id number] 09/30/2017 09:41:00 09/30/2017 23:59:59 CLS Outpatient JAMIL DIAZ MD [facility] RAD CANCER OF CERVIX [id number] 08/31/2017 08:13:00 08/31/2017 00:01:00 DIS Outpatient JAMIL DIAZ MD [facility] ONC [id number] 06/16/2017 08:05:00 06/16/2017 23:59:59 CLS Outpatient JAMIL DIAZ MD [facility] RAD CERVIX CANCER [id number] 06/09/2017 07:59:00 06/09/2017 23:59:59 CLS Outpatient JAMIL DIAZ MD [facility] RAD CANCER OF CERVIX C53.9 [id number] 05/29/2017 06:56:00 05/29/2017 10:04:00 DIS Outpatient BABITA SPIVEY DO [facility] CERVICAL CANCER [id number] 05/28/2017 05:44:00 05/28/2017 15:04:00 DIS Outpatient BABITA SPIVEY DO [facility] PREOP CERVICAL CANCER [id number] 05/20/2017 10:32:00 05/23/2017 00:01:00 DIS Outpatient JAMIL DIAZ MD [facility] ONC [id number] 01/04/2018 11:15:00 PEN Preadmit BABITA SPIVEY DO [facility] CERVICAL CANCER [id number] 12/22/2017 09:00:00 12/22/2017 23:59:59 CLS Outpatient ZACHARIAH LESLIE [id number] 06/05/2017 11:20:00 Document Registration
[2018-01-04] MEDS ORDERED: LACTATED RINGERS 1,000 ML IV PRN (09:52)
[2018-01-04] MEDS ORDERED: ceFAZolin 2 GM IV Premixed 50 ML IV ONE (10:00)
[2018-01-04] MEDS ORDERED: ceFAZolin 2 GM IV Premixed 50 ML ONE (10:16)
[2018-01-04] MEDS ORDERED: BUPIVACAINE 0.5% 30 ML (SENSORCAINE) VIAL ONE (10:39)
[2018-01-04] MEDS ORDERED: LIDOCAINE 1% INJ 20 ML 20 ML VIAL ONE (10:39)
[2018-01-04] MEDS ORDERED: MIDAZOLAM 2 MG/2 ML (VERSED) VIAL ONE (10:48)
[2018-01-04] MEDS ORDERED: fentaNYL INJECTION 100 MCG/2 ML AMP ONE (10:49)
[2018-01-04 10:59] VITALS: BP 112/76
--- NOTE | 2018-01-04 11:05 | Progress Note-Pre Operative ---
Pre-Operative Progress Note H&P Reviewed The H&P was reviewed, patient examined and no changes noted. Date Seen by Provider: January 04, 2018 Time Seen by Provider: 11:05 Date H&P Reviewed: January 04, 2018 Time H&P Reviewed: 11:05 Pre-Operative Diagnosis: cervical cancer, abdominal wall mass BABITA SPIVEY DO January 04, 2018 11:05
[2018-01-04] MEDS ORDERED: ONDANSETRON 4 MG/2 ML (SDV) Z0FRAN ONE (11:50)
[2018-01-04] MEDS ORDERED: LIDOCAINE PF 2% 5 ML (XYLOCAINE) VIAL ONE (11:50)
[2018-01-04] MEDS ORDERED: LIDOCAINE JELLY 2% (XYLOCAINE) 5 ML TUBE ONE (11:50)
[2018-01-04] MEDS ORDERED: SEVOFLURANE (ULTANE) 15 ML INHAL SOLN ONE (11:50)
[2018-01-04] MEDS ORDERED: proPOfol 200 MG/20 ML (DIPRIVAN) VIAL IV ONE (11:50)
[2018-01-04] MEDS ORDERED: ROCURONIUM 10 MG/ML 5 ML SYRINGE IV ONE (12:13)
[2018-01-04] MEDS ORDERED: MEPERIDINE (DEMEROL) INJ 50 MG/ML IVP PRN (12:30)
[2018-01-04] MEDS ORDERED: morphine INJ 10 MG/ML 1ML (SYR OR VIAL) IVP PRN (12:30)
--- NOTE | 2018-01-04 12:50 | Anesthesia-General Post-Op ---
General Patient Condition Mental Status/LOC: Same as Preop Cardiovascular: Satisfactory Nausea/Vomiting: Absent Respiratory: Satisfactory Pain: Controlled Complications: Absent Post Op Complications Complications None Follow Up Care/Instructions Patient Instructions None needed. Anesthesia/Patient Condition Patient Condition Patient is doing well, no complaints, stable vital signs, no apparent adverse anesthesia problems. No complications reported per nursing. D/[place] [facility] [place] Criteria: No MARY DE CRNA January 04, 2018 12:50
--- NOTE | 2018-01-04 12:52 | Anesthesia-General Post-Op ---
General Patient Condition Mental Status/LOC: Same as Preop Cardiovascular: Satisfactory Nausea/Vomiting: Absent Respiratory: Satisfactory Pain: Controlled Complications: Absent Post Op Complications Complications None Follow Up Care/Instructions Patient Instructions None needed. Anesthesia/Patient Condition Patient Condition Patient is doing well, no complaints, stable vital signs, no apparent adverse anesthesia problems. No complications reported per nursing. D/C home per [facility] [place] Criteria: No MARY DE CRNA January 04, 2018 12:52
[2018-01-04 13:20] VITALS: BP 107/63
--- NOTE | 2018-01-04 13:25 | Progress Note-Post Operative ---
Post-Operative Progess Note Surgeon (s)/Balloon Seller (s) Surgeon BABITA SPIVEY DO Balloon Seller: Dr. Garrido Pre-Operative Diagnosis cervical cancer, abdominal wall mass Post-Operative Diagnosis same Procedure & Operative Findings Date of Procedure 01/04/18 Procedure Performed/Findings biopsy of subcutaneous mass and biopsy of intraperitoneal abdominal mass Anesthesia Type general Estimated Blood Loss Estimated blood loss (mL): minimal Specimens/Packing Specimens Removed subcutaneous mass and intraperitoneal abdominal mass BABITA SPIVEY DO January 04, 2018 13:24
--- NOTE | 2018-01-04 13:26 | Discharge Inst-Simple/Standard ---
Discharge Inst-Standard Patient Instructions/Follow Up Plan of Care/Instructions/FU: 2 weeks Greg Activity as Tolerated: No Discharge Diet: Regular Diet Other Inst to Patient Follow up Appt: Make appointment for 2 week. Instructions: No lifting greater than 10 pounds. No strenuous activity. May shower in 24 hours, no tub bath or soaking. Use incentive spirometer at home as directed. No Smoking Skin/Wound Care: May remove bandages in 24 hours. Symptoms to Report: Appetite Changes, Extremity Discoloration, Numbness/Tingling, Swelling Increased , Bleeding Excessive, Eyesight Changes, Pain Increased, Urine Color Change, Constipation(Persistent), Fever over 101 degree F, Pain/Pressure in chest, Urinating Difficulty, Cough Up/Vomit Blood, Heart Beat Irreg/Pounding, Pain/ Pressure in jaw, Vaginal Bleeding Increase, Cramps in feet or legs, Lightheadedness, Pain/Pressure in shoulder, Diarrhea(Persistent), Memory Changes Suddenly, Questions/Concerns, Weight gain consecutive days, Dizziness/ Fainting, Nausea/Vomiting, Shortness of Breath, Weight gain over 2 pounds If questions or concerns contact your physician Or seek help at emergency department. BABITA SPIVEY DO January 04, 2018 13:26
[2018-01-04] MEDS ORDERED: HYDROcodone/APAP 5 MG/325 MG (LORTAB) TAB ONE (13:35)
[2018-01-04] MEDS ORDERED: HYDROcodone/APAP 5 MG/325 MG (LORTAB) TAB PO PRN (13:45)
[2018-01-04 13:50] VITALS: BP 103/54
[2018-01-04 14:17] VITALS: BP 103/54
--- NOTE | 2018-01-05 01:43 | OPERATIVE REPORT ---
DATE OF SERVICE: 01/04/2018 PREOPERATIVE DIAGNOSIS: Cervical cancer and abdominal wall mass. POSTOPERATIVE DIAGNOSIS: Cervical cancer and abdominal wall mass. PROCEDURE: Biopsy of subcutaneous and intraperitoneal abdominal wall mass. SURGEON: Babita Garza DO. PACS SPECIALIST: Dr. Garrido, to assist in retraction, dissection and closure, anatomy identification. ANESTHESIA: General. ESTIMATED BLOOD LOSS: Minimal. COMPLICATIONS: None. INDICATIONS: The patient is a 42-year-old female with history of cervical cancer. She has new abdominal wall mass found. She was sent by oncology for biopsy. She understands risks and benefits of procedure and wished to proceed with procedure. Consent was signed on chart. DESCRIPTION OF PROCEDURE: The patient was taken to the operating suite. She was prepped and draped in sterile fashion. Surgical pause was performed. A 5 cm incision was made just inferior to the umbilicus over the palpable mass. Lot of scar tissue and an area of questionable mass in the subcutaneous tissue. This portion was excised and sent for pathology. The fascia was encountered and still mass was able to palpate underneath it. Therefore, the abdominal cavity was then entered through the fascia. But directly after opening, the mass was adherent up to the abdominal wall. Approximately 1 cm circumference portion of the mass was then excised and sent for frozen specimen to assure that tissue was mass that was palpable and visualized on CT scan. Pathology confirmed that this was likely squamous cell in nature. The fascia was then closed using 0 Vicryl in [id number] fashion. The skin was then closed with juan. The patient tolerated the procedure well without any complications. She was taken to recovery room in stable condition. Job ID: [id number] DocumentID: [id number] Dictated Date: 01/04/2018 13:30:14 Academic Director Date: 01/04/2018 18:12:28 Dictated By: BABITA GARZA DO [facility]
== END 2018-01-04 14:20 | disposition home or self-care (01) ==
LOC: SDC 09:37
PROVIDERS: ATTEND Surgery
DX: C79.89 Secondary malignant neoplasm of other specified sites (principal); C53.9 Malignant neoplasm of cervix uteri, unspecified; E11.9 Type 2 diabetes mellitus without complications; Z79.4 Long term (current) use of insulin; F17.210 Nicotine dependence, cigarettes, uncomplicated; G47.33 Obstructive sleep apnea (adult) (pediatric); E66.01 Morbid (severe) obesity due to excess calories; Z92.3 Personal history of irradiation; Z92.21 Personal history of antineoplastic chemotherapy; Z68.41 Body mass index [BMI] 40.0-44.9, adult
CPT/HCPCS: 82962; 84703; 87081; 88305; 88331; 88341; 88342

== ENCOUNTER 2018-03-16 08:51 | Outpatient (RCR) | payer MEDICAID ==
[2017-12-24 09:12] LABS: BASOPHILS % (AUTO) 0 % (0-10); EOSINOPHILS # (AUTO) 0.1 10^3/uL (0.0-0.3); EOSINOPHILS % (AUTO) 1 % (0-10); HEMATOCRIT 37 % (35-52); HEMOGLOBIN 12.9 G/DL (11.5-16.0); LYMPHOCYTES # (AUTO) 0.6 X 10^3 (1.0-4.0); LYMPHOCYTES % (AUTO) 8 % (12-44); MEAN CORPUSCULAR HEMOGLOBIN 28 PG (25-34); MEAN CORPUSCULAR HGB CONC 35 G/DL (32-36); MEAN CORPUSCULAR VOLUME 81 FL (80-99); MEAN PLATELET VOLUME 9.1 FL (7.4-10.4); MONOCYTES # (AUTO) 0.5 X 10^3 (0.0-1.0); MONOCYTES % (AUTO) 7 % (0-12); NEUTROPHILS % (AUTO) 84 % (42-75); PLATELET COUNT 211 10^3/uL (130-400); RED BLOOD COUNT 4.56 10^6/uL (4.35-5.85); RED CELL DISTRIBUTION WIDTH 13.7 % (10.0-14.5); WHITE BLOOD COUNT 7.1 10^3/uL (4.3-11.0)
[2017-12-24 09:33] LABS: ALANINE AMINOTRANSFERASE 17 U/L (0-55); ALBUMIN 3.8 GM/DL (3.2-4.5); ALKALINE PHOSPHATASE 77 U/L (40-136); BILIRUBIN,TOTAL 0.5 MG/DL (0.1-1.0); BUN/CREATININE RATIO 15; CALCIUM 9.4 MG/DL (8.5-10.1); CARBON DIOXIDE 25 MMOL/L (21-32); CHLORIDE 101 MMOL/L (98-107); GFR ESTIMATED > 60; GLUCOSE 308 MG/DL (70-105); POTASSIUM 4.1 MMOL/L (3.6-5.0); SODIUM 135 MMOL/L (135-145); TOTAL PROTEIN 7.1 GM/DL (6.4-8.2)
[2018-02-02 09:33] LABS: BASOPHILS % (AUTO) 0 % (0-10); EOSINOPHILS % (AUTO) 0 % (0-10); HEMATOCRIT 34 % (35-52); HEMOGLOBIN 11.9 G/DL (11.5-16.0); LYMPHOCYTES # (AUTO) 0.3 X 10^3 (1.0-4.0); LYMPHOCYTES % (AUTO) 5 % (12-44); MEAN CORPUSCULAR HEMOGLOBIN 28 PG (25-34); MEAN CORPUSCULAR HGB CONC 35 G/DL (32-36); MEAN CORPUSCULAR VOLUME 80 FL (80-99); MEAN PLATELET VOLUME 8.9 FL (7.4-10.4); MONOCYTES % (AUTO) 1 % (0-12); NEUTROPHILS # (AUTO) 5.6 X 10^3 (1.8-7.8); NEUTROPHILS % (AUTO) 95 % (42-75); PLATELET COUNT 260 10^3/uL (130-400); RED BLOOD COUNT 4.26 10^6/uL (4.35-5.85); RED CELL DISTRIBUTION WIDTH 14.8 % (10.0-14.5)
[2018-02-02 09:49] LABS: ALANINE AMINOTRANSFERASE 16 U/L (0-55); ALBUMIN 3.9 GM/DL (3.2-4.5); ALKALINE PHOSPHATASE 73 U/L (40-136); BILIRUBIN,TOTAL 0.3 MG/DL (0.1-1.0); BUN/CREATININE RATIO 18; CALCIUM 9.7 MG/DL (8.5-10.1); CARBON DIOXIDE 21 MMOL/L (21-32); CHLORIDE 101 MMOL/L (98-107); CREATININE SERUM 0.82 MG/DL (0.60-1.30); GFR ESTIMATED > 60; GLUCOSE 387 MG/DL (70-105); POTASSIUM 4.7 MMOL/L (3.6-5.0); SODIUM 134 MMOL/L (135-145); TOTAL PROTEIN 7.5 GM/DL (6.4-8.2)
[2018-02-23 10:09] LABS: BASOPHILS % (AUTO) 0 % (0-10); EOSINOPHILS % (AUTO) 0 % (0-10); HEMATOCRIT 34 % (35-52); HEMOGLOBIN 11.4 G/DL (11.5-16.0); LYMPHOCYTES # (AUTO) 0.3 X 10^3 (1.0-4.0); LYMPHOCYTES % (AUTO) 5 % (12-44); MEAN CORPUSCULAR HEMOGLOBIN 26 PG (25-34); MEAN CORPUSCULAR HGB CONC 34 G/DL (32-36); MEAN CORPUSCULAR VOLUME 79 FL (80-99); MEAN PLATELET VOLUME 8.9 FL (7.4-10.4); MONOCYTES % (AUTO) 1 % (0-12); NEUTROPHILS # (AUTO) 5.5 X 10^3 (1.8-7.8); NEUTROPHILS % (AUTO) 94 % (42-75); PLATELET COUNT 226 10^3/uL (130-400); RED BLOOD COUNT 4.33 10^6/uL (4.35-5.85); RED CELL DISTRIBUTION WIDTH 15.2 % (10.0-14.5); WHITE BLOOD COUNT 5.9 10^3/uL (4.3-11.0)
[2018-02-23 10:37] LABS: ALANINE AMINOTRANSFERASE 12 U/L (0-55); ALBUMIN 3.7 GM/DL (3.2-4.5); ALKALINE PHOSPHATASE 77 U/L (40-136); BILIRUBIN,TOTAL 0.3 MG/DL (0.1-1.0); BUN/CREATININE RATIO 17; CALCIUM 9.1 MG/DL (8.5-10.1); CARBON DIOXIDE 20 MMOL/L (21-32); CHLORIDE 106 MMOL/L (98-107); CREATININE SERUM 0.76 MG/DL (0.60-1.30); GFR ESTIMATED > 60; GLUCOSE 307 MG/DL (70-105); MAGNESIUM 1.5 MG/DL (1.8-2.4); POTASSIUM 4.2 MMOL/L (3.6-5.0); SODIUM 136 MMOL/L (135-145); TOTAL PROTEIN 6.7 GM/DL (6.4-8.2)
[~2018-03-16] VITALS: Ht 170.2 cm; Wt 118.8 kg
[~2018-03-16 08:51] MED LIST changes: +ALTEPLASE 2 MG (CATHFLO) CANCER CENTER IV ONE; +CARBOPLATIN IV SCH; +D5W IV SCH; +FAMOTIDINE 20MG/2ML IV (CANCER CTR) IV SCH; +FOSAPREPITANT DIMEGLUMINE 150 MG in NS (IVPB) CANCER CENTER ONLY 150 ML IV SCH; +NORMAL SALINE IV SCH; +NS IV 1000 ML (CANCER CTR) IV SCH; +PACLITAXEL IV SCH; +PALONOSETRON HCL 0.25 MG, DEXAMETHASONE PF INJ (CANCER C 10 MG in NS (IVPB) CANCER CENT... IV SCH; +diphenhydrAMINE 25 MG TAB (BENADRYL) CANCER CENTER PO ONE; +diphenhydrAMINE 50 MG/ML INJ (CANCER CENTER) IV PRN
[2018-03-16 09:13] LABS: BASOPHILS % (AUTO) 0 % (0-10); EOSINOPHILS % (AUTO) 0 % (0-10); HEMATOCRIT 33 % (35-52); HEMOGLOBIN 11.1 G/DL (11.5-16.0); LYMPHOCYTES # (AUTO) 0.3 X 10^3 (1.0-4.0); LYMPHOCYTES % (AUTO) 6 % (12-44); MEAN CORPUSCULAR HEMOGLOBIN 27 PG (25-34); MEAN CORPUSCULAR HGB CONC 34 G/DL (32-36); MEAN CORPUSCULAR VOLUME 80 FL (80-99); MEAN PLATELET VOLUME 9.2 FL (7.4-10.4); MONOCYTES % (AUTO) 0 % (0-12); NEUTROPHILS # (AUTO) 5.1 X 10^3 (1.8-7.8); NEUTROPHILS % (AUTO) 94 % (42-75); PLATELET COUNT 179 10^3/uL (130-400); RED BLOOD COUNT 4.09 10^6/uL (4.35-5.85); RED CELL DISTRIBUTION WIDTH 16.7 % (10.0-14.5); WHITE BLOOD COUNT 5.4 10^3/uL (4.3-11.0)
[2018-03-16 09:30] LABS: ALANINE AMINOTRANSFERASE 14 U/L (0-55); ALBUMIN 3.9 GM/DL (3.2-4.5); ALKALINE PHOSPHATASE 85 U/L (40-136); BILIRUBIN,TOTAL 0.4 MG/DL (0.1-1.0); BUN/CREATININE RATIO 18; CALCIUM 9.8 MG/DL (8.5-10.1); CARBON DIOXIDE 23 MMOL/L (21-32); CHLORIDE 101 MMOL/L (98-107); CREATININE SERUM 0.84 MG/DL (0.60-1.30); GFR ESTIMATED > 60; GLUCOSE 355 MG/DL (70-105); MAGNESIUM 1.1 MG/DL (1.8-2.4); POTASSIUM 4.3 MMOL/L (3.6-5.0); SODIUM 135 MMOL/L (135-145); TOTAL PROTEIN 7.4 GM/DL (6.4-8.2)
[2018-03-16] MEDS ORDERED: diphenhydrAMINE 25 MG TAB (BENADRYL) CANCER CENTER PO ONE (09:31)
[2018-03-16] MEDS ORDERED: MAGNESIUM SULFATE 3 GM in NS (IVPB) CANCER CENTER 100 ML IV ONE (11:09)
== END 2018-03-24 | disposition home or self-care (01) ==
LOC: ONC 08:51
PROVIDERS: ATTEND Internal Medicine Hematology & Oncology
DX: Z51.11 Encounter for antineoplastic chemotherapy (principal); C53.9 Malignant neoplasm of cervix uteri, unspecified; C77.5 Secondary and unspecified malignant neoplasm of intrapelvic lymph nodes; K43.9 Ventral hernia without obstruction or gangrene; D50.0 Iron deficiency anemia secondary to blood loss (chronic); R59.0 Localized enlarged lymph nodes; K86.9 Disease of pancreas, unspecified; E11.9 Type 2 diabetes mellitus without complications; F17.210 Nicotine dependence, cigarettes, uncomplicated; F32.9 Major depressive disorder, single episode, unspecified; E66.01 Morbid (severe) obesity due to excess calories; Z68.42 Body mass index [BMI] 45.0-49.9, adult; Z79.899 Other long term (current) drug therapy
CPT/HCPCS: 36591; 36593; 80053; 83735; 85025; 86304; 96367; 96375; 96413; 96415; 96417; 99213

== ENCOUNTER → 2018-04-01 | Outpatient (CLI) | payer MEDICAID ==
[~2018-04-01] MED LIST changes: -ALTEPLASE 2 MG (CATHFLO) CANCER CENTER IV ONE; +BARIUM SUSPENSION 2.1% (VANILLA SILQ) 450 ML PO ONE; -CARBOPLATIN IV SCH; -D5W IV SCH; -FAMOTIDINE 20MG/2ML IV (CANCER CTR) IV SCH; -FOSAPREPITANT DIMEGLUMINE 150 MG in NS (IVPB) CANCER CENTER ONLY 150 ML IV SCH; +IOHEXOL 350 MG/ML 100 ML (OMNIPAQUE 350) VIAL IV ONE; -NORMAL SALINE IV SCH; +NS 250 ML (IVPB) BAG IV ONE; -NS IV 1000 ML (CANCER CTR) IV SCH; -PACLITAXEL IV SCH; -PALONOSETRON HCL 0.25 MG, DEXAMETHASONE PF INJ (CANCER C 10 MG in NS (IVPB) CANCER CENT... IV SCH; -diphenhydrAMINE 25 MG TAB (BENADRYL) CANCER CENTER PO ONE; -diphenhydrAMINE 50 MG/ML INJ (CANCER CENTER) IV PRN
--- NOTE | 2018-04-01 10:01 | Diagnostic Imaging Report ---
PROCEDURE: CT chest, abdomen, and pelvis with contrast. TECHNIQUE: Multiple contiguous axial images were obtained through the chest, abdomen, and pelvis after the administration of intravenous contrast. INDICATION: Cervical carcinoma, followup. Comparison is made with prior CT from 12/25/2017. FINDINGS: Right chest wall port remains in place. No axillary lymphadenopathy is seen. Superior mediastinal lymph node between the left common carotid artery and subclavian artery measures 9 mm compared with 8 mm. No new or enlarging lymph nodes are seen. Margie are unremarkable. There is a questionable filling defect identified in the right descending pulmonary artery, suspicious for pulmonary embolism. Small filling defect in the right upper lobe pulmonary artery is also suspected. There is very poor opacification of the pulmonary arterial system so the study is limited for evaluation of pulmonary emboli. No pericardial or pleural fluid is seen. No pulmonary nodules, infiltrates or masses are identified. Bony structures are unremarkable. IMPRESSION: 1. Stable superior mediastinal lymph node when compared with exam from 12/25/2017. No new or enlarging thoracic lymphadenopathy or evidence of pulmonary metastatic disease is seen. 2. Questionable filling defect and right-sided pulmonary arteries, suspicious for PE. Dedicated CTA chest PE study would be recommended for further evaluation. Dr. Manley, Department of Oncology was notified of these results. CT abdomen and pelvis: The liver and spleen remain enlarged. No discrete mass is identified. The gallbladder is contracted. The pancreas is unremarkable. No adrenal mass is identified. The right kidney is unremarkable. Left-sided double-J nephroureteral stent has been repositioned and now has a proximal portion in the left renal pelvis and the distal portion within the urinary bladder. The aorta is nonaneurysmal. The previously noted enlarged lymph node at the aortic bifurcation has decreased in size, now measuring 1.9 cm x 1.3 cm compared with 2.5 cm x 1.9 cm on prior. Left iliac node continues to decrease in size as well measuring 1.0 x 0.8 cm compared with 1.3 x 1.0 cm. No inguinal lymphadenopathy is seen. The previously noted abnormal density in the lower anterior abdomen is again noted and appears larger and remain suggestive of omental caking and peritoneal implants. Abnormal soft tissue is interspersed with bowel loops and extends over a distance of approximately 18 cm x 6 cm compared with 14 cm x 6 cm. No bowel obstruction is seen. There is no ascites. There is moderate stool in the colon. Bony structures does show some sclerosis of the sacroiliac joints bilaterally suggesting sacroiliitis. This is similar to prior exam. IMPRESSION: 1. Decrease in size of central retroperitoneal lymphadenopathy at the aortic bifurcation as well as in the left iliac lymphadenopathy when compared with study from 12/25/2017. 2. 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 Dictated by: Dictated on workstation # [id number]
== END ==
LOC: RAD 08:56
PROVIDERS: ATTEND Internal Medicine Hematology & Oncology
DX: C53.9 Malignant neoplasm of cervix uteri, unspecified (principal); C79.89 Secondary malignant neoplasm of other specified sites
CPT/HCPCS: 71260; 74177

== ENCOUNTER → 2018-04-02 | Outpatient (CLI) | payer MEDICAID ==
[~2018-04-02] MED LIST changes: -BARIUM SUSPENSION 2.1% (VANILLA SILQ) 450 ML PO ONE; +CATHETER FLUSH 10 ML SYR IV PRN; -IOHEXOL 350 MG/ML 100 ML (OMNIPAQUE 350) VIAL IV ONE; -NS 250 ML (IVPB) BAG IV ONE
--- NOTE | 2018-04-02 10:45 | Diagnostic Imaging Report ---
Indication: Abnormal recent CT raising question of right-sided pulmonary emboli. The patient was administered 1.1 mCi technetium 99m aerosolized DTPA and imaging of the chest was performed. Next, the patient was administered 5.5 mCi technetium 99M MAA intravenously and imaging of the chest was performed in multiple obliquities. Correlation is made with CT study one day earlier. Normal clumping of DTPA in the steph is seen on the ventilation images. Appears to be fairly homogeneous ventilation in both lungs. No ventilation defect is seen. Perfusion images demonstrate fairly homogeneous perfusion to both lungs. No definite wedge-shaped or pleural-based perfusion defect is seen. Impression: Findings consistent with low probability for pulmonary aneurysm. Dictated by: Dictated on workstation # [id number]
== END ==
LOC: CARD 08:17
PROVIDERS: ATTEND Internal Medicine Hematology & Oncology
DX: R93.8 Abnormal findings on diagnostic imaging of other specified body structures (principal)
CPT/HCPCS: 78582

== ENCOUNTER 2018-05-18 08:38 | Outpatient (RCR) | payer MEDICAID ==
[2018-04-06 09:24] LABS: BASOPHILS % (AUTO) 0 % (0-10); EOSINOPHILS % (AUTO) 0 % (0-10); HEMATOCRIT 32 % (35-52); HEMOGLOBIN 10.2 G/DL (11.5-16.0); LYMPHOCYTES # (AUTO) 0.3 X 10^3 (1.0-4.0); LYMPHOCYTES % (AUTO) 4 % (12-44); MEAN CORPUSCULAR HEMOGLOBIN 26 PG (25-34); MEAN CORPUSCULAR HGB CONC 32 G/DL (32-36); MEAN CORPUSCULAR VOLUME 81 FL (80-99); MEAN PLATELET VOLUME 9.3 FL (7.4-10.4); MONOCYTES # (AUTO) 0.1 X 10^3 (0.0-1.0); MONOCYTES % (AUTO) 1 % (0-12); NEUTROPHILS # (AUTO) 6.6 X 10^3 (1.8-7.8); NEUTROPHILS % (AUTO) 95 % (42-75); PLATELET COUNT 190 10^3/uL (130-400); RED BLOOD COUNT 3.87 10^6/uL (4.35-5.85); RED CELL DISTRIBUTION WIDTH 17.9 % (10.0-14.5)
[2018-04-06 09:41] LABS: ALANINE AMINOTRANSFERASE 13 U/L (0-55); ALBUMIN 3.8 GM/DL (3.2-4.5); ALKALINE PHOSPHATASE 83 U/L (40-136); BILIRUBIN,TOTAL 0.4 MG/DL (0.1-1.0); BUN/CREATININE RATIO 15; CALCIUM 9.7 MG/DL (8.5-10.1); CARBON DIOXIDE 22 MMOL/L (21-32); CHLORIDE 105 MMOL/L (98-107); CREATININE SERUM 0.73 MG/DL (0.60-1.30); GFR ESTIMATED > 60; GLUCOSE 173 MG/DL (70-105); MAGNESIUM 1.1 MG/DL (1.8-2.4); POTASSIUM 4.2 MMOL/L (3.6-5.0); SODIUM 137 MMOL/L (135-145); TOTAL PROTEIN 6.8 GM/DL (6.4-8.2)
[2018-04-27 08:58] LABS: BASOPHILS % (AUTO) 0 % (0-10); EOSINOPHILS % (AUTO) 0 % (0-10); HEMATOCRIT 32 % (35-52); HEMOGLOBIN 10.1 G/DL (11.5-16.0); LYMPHOCYTES # (AUTO) 0.3 X 10^3 (1.0-4.0); LYMPHOCYTES % (AUTO) 5 % (12-44); MEAN CORPUSCULAR HEMOGLOBIN 27 PG (25-34); MEAN CORPUSCULAR HGB CONC 32 G/DL (32-36); MEAN CORPUSCULAR VOLUME 85 FL (80-99); MEAN PLATELET VOLUME 8.7 FL (7.4-10.4); MONOCYTES # (AUTO) 0.1 X 10^3 (0.0-1.0); MONOCYTES % (AUTO) 1 % (0-12); NEUTROPHILS # (AUTO) 5.3 X 10^3 (1.8-7.8); NEUTROPHILS % (AUTO) 95 % (42-75); PLATELET COUNT 152 10^3/uL (130-400); RED BLOOD COUNT 3.72 10^6/uL (4.35-5.85); RED CELL DISTRIBUTION WIDTH 20.2 % (10.0-14.5); WHITE BLOOD COUNT 5.6 10^3/uL (4.3-11.0)
[2018-04-27 09:15] LABS: ALANINE AMINOTRANSFERASE 14 U/L (0-55); ALBUMIN 3.7 GM/DL (3.2-4.5); ALKALINE PHOSPHATASE 82 U/L (40-136); BILIRUBIN,TOTAL 0.5 MG/DL (0.1-1.0); BUN/CREATININE RATIO 13; CALCIUM 8.8 MG/DL (8.5-10.1); CARBON DIOXIDE 25 MMOL/L (21-32); CHLORIDE 101 MMOL/L (98-107); CREATININE SERUM 0.76 MG/DL (0.60-1.30); GFR ESTIMATED > 60; GLUCOSE 209 MG/DL (70-105); MAGNESIUM 1.3 MG/DL (1.8-2.4); POTASSIUM 3.7 MMOL/L (3.6-5.0); SODIUM 137 MMOL/L (135-145); TOTAL PROTEIN 6.4 GM/DL (6.4-8.2)
[~2018-05-18] VITALS: Ht 170.2 cm; Wt 110.2 kg
[~2018-05-18 08:38] MED LIST changes: +CARBOPLATIN IV SCH; -CATHETER FLUSH 10 ML SYR IV PRN; +D5W IV SCH; +FAMOTIDINE 20MG/2ML IV (CANCER CTR) IV SCH; +FOSAPREPITANT DIMEGLUMINE 150 MG in NS (IVPB) CANCER CENTER ONLY 150 ML IV SCH; +MAGNESIUM SULFATE (CANCER CTR) 3 GM in NS (IVPB) CANCER CENTER 100 ML IV ONE; +MAGNESIUM SULFATE 3 GM in NS (IVPB) CANCER CENTER 100 ML IV ONE; +NORMAL SALINE IV SCH; +NS IV 1000 ML (CANCER CTR) IV SCH; +PACLITAXEL IV SCH; +PALONOSETRON HCL 0.25 MG, DEXAMETHASONE PF INJ (CANCER C 10 MG in NS (IVPB) CANCER CENT... IV SCH; +diphenhydrAMINE 25 MG TAB (BENADRYL) CANCER CENTER PO SCH; +diphenhydrAMINE 50 MG/ML INJ (CANCER CENTER) IV PRN
[2018-05-18 09:06] LABS: BASOPHILS % (AUTO) 0 % (0-10); EOSINOPHILS % (AUTO) 0 % (0-10); HEMATOCRIT 29 % (35-52); HEMOGLOBIN 9.6 G/DL (11.5-16.0); LYMPHOCYTES # (AUTO) 0.3 X 10^3 (1.0-4.0); LYMPHOCYTES % (AUTO) 7 % (12-44); MEAN CORPUSCULAR HEMOGLOBIN 29 PG (25-34); MEAN CORPUSCULAR HGB CONC 33 G/DL (32-36); MEAN CORPUSCULAR VOLUME 88 FL (80-99); MONOCYTES % (AUTO) 1 % (0-12); NEUTROPHILS # (AUTO) 3.5 X 10^3 (1.8-7.8); NEUTROPHILS % (AUTO) 92 % (42-75); PLATELET COUNT 146 10^3/uL (130-400); RED BLOOD COUNT 3.36 10^6/uL (4.35-5.85); RED CELL DISTRIBUTION WIDTH 20.2 % (10.0-14.5); WHITE BLOOD COUNT 3.8 10^3/uL (4.3-11.0)
[2018-05-18 09:21] LABS: ALANINE AMINOTRANSFERASE 10 U/L (0-55); ALBUMIN 3.5 GM/DL (3.2-4.5); ALKALINE PHOSPHATASE 82 U/L (40-136); BILIRUBIN,TOTAL 0.5 MG/DL (0.1-1.0); BUN/CREATININE RATIO 15; CALCIUM 8.5 MG/DL (8.5-10.1); CARBON DIOXIDE 25 MMOL/L (21-32); CHLORIDE 103 MMOL/L (98-107); CREATININE SERUM 0.65 MG/DL (0.60-1.30); GFR ESTIMATED > 60; GLUCOSE 162 MG/DL (70-105); POTASSIUM 4.1 MMOL/L (3.6-5.0); SODIUM 138 MMOL/L (135-145); TOTAL PROTEIN 6.2 GM/DL (6.4-8.2)
[2018-05-18] MEDS ORDERED: MAGNESIUM SULFATE 3 GM in NS (IVPB) CANCER CENTER 100 ML IV ONE (09:32)
[2018-05-18] MEDS ORDERED: D5W IV SCH (11:00)
[2018-05-18] MEDS ORDERED: CARBOPLATIN IV SCH (11:00)
== END 2018-05-27 16:44 | disposition home or self-care (01) ==
LOC: ONC 08:38
PROVIDERS: ATTEND Internal Medicine Hematology & Oncology
DX: Z51.11 Encounter for antineoplastic chemotherapy (principal); C53.9 Malignant neoplasm of cervix uteri, unspecified; C77.5 Secondary and unspecified malignant neoplasm of intrapelvic lymph nodes; K43.9 Ventral hernia without obstruction or gangrene; D50.0 Iron deficiency anemia secondary to blood loss (chronic); R59.0 Localized enlarged lymph nodes; K86.9 Disease of pancreas, unspecified; E11.9 Type 2 diabetes mellitus without complications; F17.210 Nicotine dependence, cigarettes, uncomplicated; F32.9 Major depressive disorder, single episode, unspecified; E66.01 Morbid (severe) obesity due to excess calories; Z68.42 Body mass index [BMI] 45.0-49.9, adult; Z79.899 Other long term (current) drug therapy
CPT/HCPCS: 36591; 80053; 83735; 85025; 96367; 96368; 96375; 96413; 96415; 96417

== ENCOUNTER → 2018-06-10 | Outpatient (CLI) | payer MEDICAID ==
[~2018-06-10] MED LIST changes: +BARIUM SUSPENSION 2.1% (VANILLA SILQ) 450 ML PO ONE; -CARBOPLATIN IV SCH; +CATHETER FLUSH 10 ML SYR IV PRN; -D5W IV SCH; +DEXA4TAB PO; +ESCI20TA45 PO; -FAMOTIDINE 20MG/2ML IV (CANCER CTR) IV SCH; +FOLI1TAB24 PO; -FOSAPREPITANT DIMEGLUMINE 150 MG in NS (IVPB) CANCER CENTER ONLY 150 ML IV SCH; +IOHEXOL 350 MG/ML 100 ML (OMNIPAQUE 350) VIAL IV ONE; +MAGN420T PO; -MAGNESIUM SULFATE (CANCER CTR) 3 GM in NS (IVPB) CANCER CENTER 100 ML IV ONE; -MAGNESIUM SULFATE 3 GM in NS (IVPB) CANCER CENTER 100 ML IV ONE; -NORMAL SALINE IV SCH; +NS 250 ML (IVPB) BAG IV ONE; -NS IV 1000 ML (CANCER CTR) IV SCH; +ONDA8TAB12 PO; +OXYC30TA77 PO; -PACLITAXEL IV SCH; -PALONOSETRON HCL 0.25 MG, DEXAMETHASONE PF INJ (CANCER C 10 MG in NS (IVPB) CANCER CENT... IV SCH; +PANT40TA3 PO; +POLY119P4 PO; +PROM25TA14 PO; +RECEIVED CONTRAST (Hold Metformin) IV SCH; +VARE1TAB21 PO; -diphenhydrAMINE 25 MG TAB (BENADRYL) CANCER CENTER PO SCH; -diphenhydrAMINE 50 MG/ML INJ (CANCER CENTER) IV PRN
--- NOTE | 2018-06-10 12:53 | Diagnostic Imaging Report ---
PROCEDURE: CT chest with contrast, CT abdomen and pelvis with and without contrast. TECHNIQUE: Pre and post intravenous contrast axial imaging of the abdomen and pelvis and post contrast axial imaging of the chest were performed. INDICATION: Cervical carcinoma with peritoneal carcinomatosis. Patient stopped chemotherapy 3 weeks ago, now complaining of right-sided abdominal pressure and nausea and vomiting. Comparison is made with prior CT from 04/01/2018. CT chest: FINDINGS: Right chest wall port remains in place with tip within the SVC. No axillary lymphadenopathy is identified. Small lymph node in the superior mediastinum measures 7 mm short axis compared with 9 mm. No other mediastinal lymph nodes are seen. The steph are unremarkable. No pericardial or pleural fluid is detected. No pulmonary nodules, masses or infiltrates are seen. IMPRESSION: Unremarkable CT of the chest. CT abdomen and pelvis: FINDINGS: Diffuse low density throughout the liver is seen consistent with hepatic steatosis. No discrete liver mass is identified. The gallbladder appears contracted. The pancreas and spleen are unremarkable. No adrenal mass is identified. Left kidney again contains a double-J nephroureteral stent extending into the bladder. There continues to be reduction in size of lymph nodes in the central retroperitoneum. Left periaortic marker node measures 15 mm x 11 mm compared with 19 mm x 14 mm. However, patient has developed significant fluid-filled distention of small bowel loops throughout the abdomen. There appears to be a focal transition in the anterior lower abdomen at the site of previously described peritoneal soft tissue masses. A soft tissue mass is difficult to measure and infiltrative amongst bowel loops but is approximately 19 cm x 7 cm compared with 18 cm x 6 cm. Nodularity along the surface of the inferior right lobe of the liver is noted consistent with peritoneal implants. A confluence of nodules at this location measures 6.0 x 3.4 cm. Abnormal soft tissue in the midline pelvis just above the dome of the bladder is also seen suggestive of implants. No inguinal or iliac lymphadenopathy is seen. Uterus is unremarkable. IMPRESSION: Development of significant fluid-filled distention of small bowel loops throughout the abdomen and pelvis with transition distally, consistent with small bowel obstruction. The transition appears to be in the region of abnormal soft tissue in the low anterior abdomen at the site of patient's known peritoneal implants. Implants are noted elsewhere, particularly along the surface of the liver inferiorly as well as in the low midline of the pelvis. The central retroperitoneal adenopathy has improved since prior exam from 04/01/2018. Silver Cunningham nurse practitioner was called with these results. Dictated by: Dictated on workstation # [id number]
== END ==
LOC: RAD 11:34
PROVIDERS: ATTEND Nurse Practitioner Adult Health
DX: C53.9 Malignant neoplasm of cervix uteri, unspecified (principal); C78.6 Secondary malignant neoplasm of retroperitoneum and peritoneum; R59.0 Localized enlarged lymph nodes; Z96.89 Presence of other specified functional implants
CPT/HCPCS: 71260; 74178